=== PATIENT | female | born 1975 | race Caucasian/White ===

== ENCOUNTER → 2020-05-01 18:05 | Outpatient (CLI) | payer OTHER, SELFPAY ==
--- NOTE | ~2020-05-01 | MM_ITS ---
EXAMINATION: MM screening [facility] BI w jenniffer HISTORY: Screening mammogram TECHNIQUE: Craniocaudal and mediolateral oblique 3-D tomosynthesis images were obtained and synthetic 2-D images were generated. CAD analysis was submitted and interpreted. COMPARISON: 12/10/2018, 06/27/2016, 12/30/2019 BREAST PARENCHYMAL COMPOSITION: There are scattered areas of fibroglandular density. FINDINGS: There is no evidence of suspicious mass, calcification, or architectural distortion to sugg est malignancy in either breast. There has been no suspicious interval change. IMPRESSION: 1. No mammographic evidence of malignancy. 2. Recommend routine screening mammography in one year. BI-RADS Category 1: Negative Reviewed, dictated and finalized at location A.
== END ==
PROVIDERS: Visit Provider Nurse Practitioner Obstetrics & Gynecology
DX: Z12.31 Encounter for screening mammogram for malignant neoplasm of breast (principal)
CPT/HCPCS: 77063; 77067

== ENCOUNTER → 2021-08-23 11:54 | Outpatient (CLI) | payer OTHER, SELFPAY ==
--- NOTE | ~2021-08-23 | MM_ITS ---
EXAMINATION: MM screening [facility] BI w jenniffer HISTORY: Screening TECHNIQUE: Craniocaudal and mediolateral oblique 3-D tomosynthesis images were obtained and synthetic 2-D images were generated. CAD analysis was submitted and interpreted. COMPARISON: Comparison to multiple prior studies sequentially, with oldest reviewed study dated 06/06. BREAST PARENCHYMAL COMPOSITION: Breast composed of scattered areas of fibroglandular density FINDINGS: There is no evidence of suspicious mass, calcification, or architectural distortion to sugg est malignancy in either breast. There has been no suspicious interval change. IMPRESSION: 1. No mammographic evidence of malignancy. 2. Recommend routine screening mammography in one year. BI-RADS Category 1: Negative Reviewed, dictated and finalized at location A. [employer]
== END ==
PROVIDERS: PCP Internal Medicine; Visit Provider Obstetrics & Gynecology
DX: Z12.31 Encounter for screening mammogram for malignant neoplasm of breast (principal)
CPT/HCPCS: 77063; 77067

== ENCOUNTER → 2022-01-23 09:16 | Outpatient (CLI) | payer OTHER, SELFPAY ==
--- NOTE | ~2022-01-23 | XR_ITS ---
XR shoulder RT min 2V DATE: 01/23/2022 09:52 INDICATION: Shoulder pain TECHNIQUE: 4 views COMPARISON: None FINDINGS: No fracture or dislocation, periosteal reaction or bone destruction or abnormal soft tissue calcification. Normal alignment at the acromion clavicular and glenohumeral joints. Levoscoliosis of the cervical spine and dextro scoliosis of the upper thoracic spine. IMPRESSION: Cervical and thoracic scoliosis No fracture or dislocation or abnormal soft tissue calcification of right shoulder Reviewed, dictated and finalized at location B. IMPRESSION: Cervical and thoracic scoliosis No fracture or dislocation or abnormal soft tissue calcification of right shoul katie
--- NOTE | ~2022-01-23 | XR_ITS ---
XR shoulder LT min 2V DATE: 01/23/2022 09:52 INDICATION: Shoulder pain TECHNIQUE: 4 views COMPARISON: None FINDINGS: Levoscoliosis of cervical spine and extra scoliosis of the upper thoracic spine. No fracture, dislocation, periosteal reaction or bone destruction or abnormal soft tissue calcificati on of left shoulder. IMPRESSION: Cervical and thoracic scoliosis; no fracture or dislocation or abnormal soft tissue calci fication of the left shoulder Reviewed, dictated and finalized at location B. IMPRESSION: Cervical and thoracic scoliosis; no fracture or dislocation or abno rmal soft tissue calcification of the left shoulder
== END ==
PROVIDERS: PCP Internal Medicine; Visit Provider Nurse Practitioner Family
DX: M25.519 Pain in unspecified shoulder (principal); M41.82 Other forms of scoliosis, cervical region; M41.84 Other forms of scoliosis, thoracic region
CPT/HCPCS: 73030

== ENCOUNTER → 2022-08-28 11:10 | Outpatient (CLI) | payer OTHER, SELFPAY ==
--- NOTE | ~2022-08-28 | XR_ITS ---
XR hip LT 2V w AP pelvis 08/28/2022 11:30 Indication: Bursitis Procedure: 4 views left hip including AP pelvis Comparison: No prior studies for comparison. Findings: There is mild osteoarthritis no fracture or traumatic malalignment. No soft tissue abnormal ity. There are pelvic phleboliths. Pelvic rings are intact. Sacral foramen are symmetric. Impression: 1: Mild osteoarthritis of the left hip. Reviewed, dictated and finalized at location L. DRESSER Impression: 1: Mild osteoarthritis of the left hip.
== END ==
PROVIDERS: PCP Internal Medicine; Visit Provider Nurse Practitioner Family
DX: M71.9 Bursopathy, unspecified (principal); M16.12 Unilateral primary osteoarthritis, left hip
CPT/HCPCS: 73502

== ENCOUNTER → 2023-01-01 10:35 | Outpatient (CLI) | payer OTHER, SELFPAY ==
--- NOTE | ~2023-01-01 | MM_ITS ---
EXAMINATION: MM screening [facility] BI w jenniffer HISTORY: Screening mammogram TECHNIQUE: Craniocaudal and mediolateral oblique 3-D tomosynthesis images were obtained and synthetic 2-D images were generated. CAD analysis was submitted and interpreted. COMPARISON: August 23, 2021, May 01, 2020, December 10, 2018 bilateral screening mammogram examinati on BREAST PARENCHYMAL COMPOSITION: There are scattered areas of fibroglandular density. FINDINGS: There is no evidence of suspicious mass, calcification, or architectural distortion to sugg est malignancy in either breast. There has been no suspicious interval change. IMPRESSION: 1. No mammographic evidence of malignancy. 2. Recommend routine screening mammography in one year. BI-RADS Category 1: Negative Reviewed, dictated and finalized at location A.
== END ==
PROVIDERS: PCP Advanced Practice Midwife; Visit Provider Advanced Practice Midwife
DX: Z12.31 Encounter for screening mammogram for malignant neoplasm of breast (principal)
CPT/HCPCS: 77063; 77067

== ENCOUNTER 2024-03-26 08:22 | Outpatient (CLI) | payer OTHER, SELFPAY ==
--- NOTE | ~2024-03-26 | MM_ITS ---
EXAMINATION: MM screening [facility] BI w jenniffer HISTORY: Screening TECHNIQUE: Craniocaudal and mediolateral oblique 3-D tomosynthesis images were obtained and synthetic 2-D images were generated. CAD analysis was submitted and interpreted. COMPARISON: Comparison to multiple prior studies sequentially, with oldest reviewed study dated 12/29. BREAST PARENCHYMAL COMPOSITION: . Not dense: There are scattered areas of fibroglandular density. FINDINGS: There is no evidence of suspicious mass, calcification, or architectural distortion to sugg est malignancy in either breast. There has been no suspicious interval change. IMPRESSION: 1. No mammographic evidence of malignancy. 2. Recommend routine screening mammography in one year. BI-RADS Category 1: Negative Reviewed, dictated and finalized at location B.
== END 2024-03-26 08:23 | disposition home or self-care (01) ==
LOC: MICIMG 08:23
PROVIDERS: PCP Internal Medicine; Visit Provider Nurse Practitioner Women's Health
DX: Z12.31 Encounter for screening mammogram for malignant neoplasm of breast (principal)
CPT/HCPCS: 77063; 77067

== ENCOUNTER 2025-01-09 00:35 | Day surgery (SDC) | payer OTHER, SELFPAY ==
[2025-01-03 11:20] VITALS: BMI 37.1
--- NOTE | 2025-01-03 11:21 | PC.NURSE ---
Report to the Outpatient Waiting Room, entrance under the green pavilion located off [facility], at time _0600_ on date _[id number]_. Planned Procedure Time: _0730_.? Time changes happen often and if your time is changed the preop area will call you the afternoon before. - You and your visitor will be asked to self-screen and do not enter if you have any COVID symptoms. Please call surgeon if you need to reschedule. - A mask is optional within the hospital at this time. Patients may have clear liquids (water, carbonated beverages, clear teas, apple juice) until 3 hours prior to surgery with a maximum of 20 ounces. - No food from midnight until time of surgery and no smoking, or chewing tobacco (or any form of nicotine). No chewing gum, candy or mints. Take only the following medications with a SIP of water on the morning of surgery: ___Nebivolol and Flonase____ DO NOT STOP ANY OF YOUR OTHER PRESCRIPTION MEDICATIONS PRIOR TO SURGERY EXCEPT THE FOLLOWING Hold all vitamins and supplements for 3 days per anesthesiologist. Medications to discontinue per physician ____Hold Semaglutide until after surgery.____ Date to take last dose Please no make-up, nail romansh, hairspray, perfume, deodorant, or body powder the day of surgery.? No jewelry (including any body piercings) or valuables the day of surgery, leave them at home.? Please take a shower or bath the night before, or the morning of, surgery with an antibacterial soap.? Wear comfortable, loose fitting clothing.? - Jewelry must be removed prior to entering the operating room.? Rings and piercings that are not removed may be cut off. - The hospital will not accept responsibility for valuables.? - Please leave all valuables, including medications, at home the day of surgery. If you are going home after surgery, a licensed local combination truck driver must drive you home.? - NO public transportation without another adult if you receive anesthesia. - We recommend that an adult stay with you for 24 hours following discharge. - We also recommend that you do not drive, make important decision, drink alcoholic beverages, or take any drugs that were not prescribed by your health care provider for at least 24 hours after your discharge time. Follow any additional instructions given to you from your surgeon. Telephone instructions given to ___Claudia__and asked if any additional questions and then verbalized understanding. Patient advised to call surgeon office or pre surgery nurse liaison [phone] if any additional questions.
--- OUTSIDE RECORDS SUMMARY | 2025-01-09 00:38 | XMS_ITS | Clinical Summary ---
Author Organization [facility] Address [address] [facility], [address] [address] Phone Care Team Providers Care Photostatic Copy Maker Name Role Phone Florentino Garza MD Primary Care Provider [phone] Allergies Active Allergy Reactions Criticality Noted Date Comments Ciprofloxacin Rash 12/05/2016 Gabapentin Shortness of Breath High 02/01/2021 Medications cyanocobalamin (VITAMIN B-12) 1000 MCG/ML Solution by Intramuscular route. 7 Active Naltrexone-buP ROPion HCl ER 8-90 MG TABLET SR 12 HR Take by mouth. 7 Active methylPREDNISo lone (MEDROL DOSPACK) 4 MG Tablet Therapy Pack As directed 9 Active predniSONE (DELTASONE) 10 MG TabletIndicati ons:Rash Take 4 tab PO daily x 2 days, 3 tab PO daily x 2 days, 2 tab PO daily x 2 day, 1 tab PO daily x 2 days. 20 Tab 0 Active Additional Information Patient not taking.Reported on 04/26/2023 D3-50 1.25 MG (48724 UT) Capsule TAKE 1 CAPSULE BY MOUTH ONE TIME PER WEEK 1 Active ibuprofen (MOTRIN) 800 MG TabletIndicati ons:Injury of calf,Right calf pain Take 1 Tablet by mouth every 8 hours as needed for Mild or more severe pain. 60 Tablet 2 Active Famotidine (PEPCID PO) Take by mouth. Act paul doxycycline hyclate (VIBRAMYCIN) 100 MG Capsule 2 Active albuterol (ProAir HFA) 108 (90 Base) MCG/ACT Aerosol SolutionIndica tions:Bronchit is take 2 Puffs by inhalation every 4 hours as needed for Wheezing or Cough. 18 g 2 Active Additional Information Patient not taking.Reported on 03/09/2024 methylPREDNISo lone (Medrol) 4 MG Tablet Therapy PackIndication s:Bronchitis Use as per instructions on package. 21 Tablet 2 Active Additional Information Patient not taking.Reported on 04/26/2023 nebivolol (BYSTOLIC) 5 MG Tablet Take 5 mg by mouth daily. Active Active Problems No known active problems Immunizations Immunization Administration Dates Next Due Covid-19, Mrna, Lnp-s, Pf, 30 Mcg/0.3 Ml Dose (P fizer) 08/24/2020,08/03/2020 Influenza Vaccine 03/22/2021 Influenza Vaccine greater than 3 yrs 03/28/2022 Influenza Vaccine, Quadrivalent, PF 03/22/2021,1 Influenza, Recombinant, Quadrivalent,injectable, Pf 05/05/2020 Influenza, Seasonal, Injectable, Undefined 05/02,04/09/2019 TDAP Vaccine 08/09/2008 Social History Tobacco Use Types Packs/Day Years Used Date Smoking Tobacco: Never Smokeless Tobacco: Never Tobacco Cessation:Counseling Given: Not Answered Alcohol Use Standard Drinks/Week Comments Not Currently 0 (1 standard drink = 0.6 oz pur e alcohol) Sexually Active Control Partners Comments Yes Male Comments No Sex and Gender Information Value Date Recorded Sex Assigned at Not on file Legal Sex Female 9:04 PM CDT Gender Identity Not on file Sexual Orientation Not on file Last Filed Vital Signs Vital Sign Reading Time Taken Comments Blood Pressure 134/66 03/09/2024 3:48 PM CDT Pulse 86 03/09/2024 3:48 PM CDT Temperature 35.9 C (96.7 F) 03/09/2024 3:48 PM CDT Respiratory Rate 20 03/09/2024 3:48 PM CDT Oxygen Saturation 98% 03/09/2024 3:48 PM CDT Inhaled Oxygen Concentration - - Weight 106.1 kg (234 lb) 02/09/2022 1:10 PM CDT Height 167.6 cm (5' 6) 02/03/2022 5:38 PM CDT Body Mass Index 37.77 02/03/2022 5:38 PM CDT Plan of Treatment Health Maintenance Due Date Last Done Comments Hepatitis C Virus (HCV) Screening 1974 Hepatitis B Immunization (1 of 3 - 19+ 3-dose series) 1993 Pap Smear 1995 Cervical Cancer Screening (CCS) 2004 HPV/Cotest 2004 Cologuard 2019 Immunochemical Fecal Occult Blood 2019 Mammogram 08/23/2022 08/23/2021, 08/23/2021 SARS-COV-2 Immunization ( season) 2024 06/13/2021, 08/24/2020, 08/03/2020 Zoster Immunization (1 of 2) 2024 Influenza Immunization (Season Ended) 2025 07/16/2023, 07/16/2023, 03/28/2022, Additional history exists Td Immunization Every 10 Years (Adults With 1 Tdap) 02/22/2032 02/21/2022, 08/09/2008 Colonoscopy 04/16/2032 04/16/2022, 11/30/2015 Colorectal Cancer Screening 04/16/2032 Respiratory Syncytial Virus (RSV) Immunization (Adult) (1 - 1-dose 75+ series) 2049 Discussion re Starting/Frequency of Mammograms Discontinued 08/23/2021 DTaP/Tdap/Td Immunization Discontinued 02/21/2022, 10/2008 Pneumococcal Immunization (50+ years) Completed 07/27/2022 Pneumococcal Immunization Combined Discontinued 07/27/2022 Human Papillomavirus (HPV) Immunization Aged Out No longer eligible based on patient's age to complete this topic Meningococcal Immunization (ACWY) Aged Out No longer eligible based on patient's age to complete this topic Rotavirus Immunization Aged Out No lo nger eligible based on patient's age to complete this topic Insurance [employer] [facility] Care Teams Photostatic Copy Maker Relationship Specialty Start Date End Date Florentino Garza MD [address] [place] [id number] PCP - General 02/03/22
--- OUTSIDE RECORDS SUMMARY | 2025-01-09 00:38 | XMS_ITS | Referral Summary ---
Author Organization [facility] [address] [place] [address] [place] [id number] Care Team Providers Care Elevator Erector Name Role Phone Florentino Garza MD Primary Care Provider + Allergies Active Allergy Reactions Criticality Noted Date Comments Ciprofloxacin Rash Medium 09/14/2015 Gabapentin Shortness of breath High 02/01/2021 Medications loratadine (CLARITIN) 10 mg tablet Take 1 tablet (10 mg total) by mouth daily Active nebivoloL (BYSTOLIC) 5 mg tablet Take 1 tablet (5 mg total) by mouth daily Active busPIRone (BUSPAR) 10 mg tablet Take 1 tablet (10 mg total) by mouth 2 (two) times a day 4 Active naproxen sodium 220 mg capsule Take 220-440 mg by mouth 2 (two) times a day as needed (pain) Active ondansetron (ZOFRAN) 4 mg tablet Take 1 tablet (4 mg total) by mouth every 6 (six) hours 12 tablet 4 Active dicyclomine (BENTYL) 20 mg tablet Take 1 tablet (20 mg total) by mouth 2 (two) times a day 20 tablet 4 05/24/20 25 Active senna-docusate (PERICOLACE) 8.6-50 mg Take 1-2 tabs nightly as needed for constipation management. 4 Active simethicone (MYLICON) 125 mg chewable tablet Take 1 tablet (125 mg total) by mouth 4 (four) times a day as needed (cramping/bloati ng/gas/nausea) 120 tablet 3 4 Active metoclopramide (REGLAN) 10 mg tablet Take one pill up to twice daily as needed for abdominal fullness, nausea, sulfur burps, epigastric pain. 60 tablet 4 Active Active Problems Problem Noted Date Diagnosed Date Irritable bowel syndrome wit h both constipation and diarrhea 01/15/2024 Tubular adenoma of colon 01/15/2024 Abnormal biliary HIDA scan 01/15/2024 Hepatic steatosis 01/15/2024 Dyspepsia 01/15/2024 Arthralgia of multiple joints 01/03/2022 Assessment & Plan (01/03/2022 11:44 AM CDT): Arthralgias continue. Referred to rheumatology for further evaluation and management. Cellulitis of abdominal wall 01/03/2022 Assessment & Plan (01/03/2022 11:44 AM CDT): Finished all antibiotics. Clean area with antibacterial soap. Keep area open, without bandages, as much as possible. Screening for colon cancer 01/03/2022 Overview (01/03/2022): Added automatically from request for surgery [id number] Personal history of colonic polyps 01/03/2022 Overview (01/03/2022): Added automatically from request for surgery [id number] Class 2 obesity due to exces s calories without serious comorbidity with body mass index (BMI) of 38.0 to 38.9 in adult 12/16/2021 Assessment & Plan (01/03/2022 11:45 AM CDT): Weight reduction, daily exercise and dietary modifications recommended. Assessment & Plan (12/16/2021 12:41 PM CDT): Weight reduction, daily exercise and dietary modifications recommended. Myalgia 12/16/2021 Assessment & Plan (01/03/2022 11:44 AM CDT): Muscle pain continues, referred to Rheumatology for further eval/mgmt. Assessment & Plan (12/16/2021 12:41 PM CDT): Labs ordered, will follow. Short follow-up recommended. Migraine with aura 05/17/2021 Uterine leiomyoma 05/17/2021 Vitamin D deficiency 10/24/2016 Assessment & Plan (12/16/2021 12:42 PM CDT): Labs ordered, encouraged patient to take daily supplement. Vitamin B12 deficiency (non anemic) 10/24/2016 Assessment & Plan (12/16/2021 12:42 PM CDT): Labs ordered, encouraged patient to take daily supplement. Sleep disturbance 10/24/2016 Other rosacea 05/24/2010 Pure hypercholesterolemia 09/06/2004 Overview (12/16/2021): The 10-year ASCVD risk score ([employer] CELINE Jr., et al., 2013) is: 1.2% Values used to calculate the score: Age: 43 years Sex: Female Is Non- : No Diabetic: No Tobacco smoker: No Systolic Blood Pressure: 138 mmHg Is BP treated: No HDL Cholesterol: 49 mg/dL Total Cholesterol: 216 mg/dL Supraventricular premature beats 08/26/2004 Resolved Problems Problem Noted Date Diagnosed Date Resolved Date Intermittent constipation 10/30/2023 Intermittent diarrhea 10/30/20232023 Generalized anxiety disorder 08/02/2004 01/15/2024 Immunizations Immunization Administration Dates Next Due Influenza, Quadrivalent, Rec ombinant, Egg Free, Preservative Free, Intramuscular 05/05/2020 Influenza, Quadrivalent, Spl it, Preservative Free, Intramuscular 03/22/2021,04/07/2018 Influenza, Trivalent, IM (MDV) 4,03/28/2022,05/02/2020,04/09 Pfizer SARS-CoV-2 Monovalent Vaccination (12+ Yrs) PURPLE 06/13/2021 Tdap 02/21/2022,08/09/2008 Social History Tobacco Use Types Packs/Day Years Used Date Smoking Tobacco: Never Smokeless Tobacco: Never Tobacco Cessation:Counseling Given: Not Answered Alcohol Use Standard Drinks/Week Comments No 0 (1 standard drink = 0.6 oz pur e alcohol) AUDIT-C Answer Date Recorded Q1: How often do you have a drink containing alc ohol? Never 05/27/2024 Average Number of Drinks Not on file 024 Frequency of Binge Drinking Not on file 05/07 PHQ-2 Answer Date Recorded PHQ-2 Total Score (If total score is 3 or more points, staff should administer the PHQ-9) 0 01/03/2022 Personal Safety Answer Date Recorded Have you ever been in or are you currently in a harmful physical or emotional relationship or is someone making you feel afraid or unsafe? Denies 05/23/2024 Comments Unknown Sex and Gender Information Value Date Recorded Sex Assigned at Not on file Legal Sex Female 3:36 PM LATHE MACHINIST Gender Identity Not on file Sexual Orientation Not on file Last Filed Vital Signs Vital Sign Reading Time Taken Comments Blood Pressure 131/87 05/27/2024 9:27 AM LATHE MACHINIST Pulse 82 05/27/2024 9:27 AM LATHE MACHINIST Temperature 36.4 C (97.6 F) 05/23/2024 11:40 PM LATHE MACHINIST Respiratory Rate 16 05/24/2024 4:00 AM LATHE MACHINIST Oxygen Saturation 95% 05/27/2024 9:27 AM LATHE MACHINIST Inhaled Oxygen Concentration - - Weight 107.2 kg (236 lb 4.8 oz) 05/27/2024 9:27 AM LATHE MACHINIST Height 167.6 cm (5' 6) 05/27/2024 9:27 AM LATHE MACHINIST Body Mass Index 38.14 05/27/2024 9:27 AM LATHE MACHINIST Plan of Treatment Not on file Procedures Procedure Name Priority Date/Time Associated Diagnosis Comments COLONOSCOPY 04/16/2022 12:22 PM CDT HEPATITIS C ANTIBODY Routine 12/16/2021 10:44 AM CDT Annual physical exam Encounter for hepatitis C screening test for low risk patient HM MAMMOGRAPHY Routine 06/08/2021 from Last 3 Months or Most Recently Relevant to Health Maintenance Results * COLONOSCOPY (04/16/2022 12:22 PM CDT) Anatomical Region Laterality Modality Other Narrative Procedure Note Kane Daniels MD - 04/16/2022 12:22 PM CDT [facility] Patient Name: Yesy Lutz Procedure Date: 04/16/2022 12:22PM Date of : 1975 Admit Type: Outpatient Age: 46 Gender: Female Attending MD: Kane Daniels M.D. Room: [facility] ENDOSCOPY ROOM 1 Note Status: Finalized Patient Profile: This is a 46 year old female. History of adenomapolyp in 2015. She has some constipation issues. Nofamily history of colon cancer. Procedure: Colonoscopy Indications: Surveillance: Personal history of adenomatouspolyps on last colonoscopy > 5 years ago, Lastcolonoscopy: November 2015 Referring MD: Matilde Kemp D.O. Providers: Kane Daniels M.D. Impression: - The entire examined colon is normal lesions noted over. - Diverticulosis in the sigmoid colon. - Internal hemorrhoids. - No specimens collected. Recommendation: - Repeat colonoscopy in 5 years for screeningpurposes. Medicines: Monitored Anesthesia Care Complications: No immediate complications. Estimated Blood Loss: Estimated blood loss: none. Procedure: Pre-Anesthesia Assessment: - Prior to the procedure, a History and Physicalwas performed, and patient medications and allergieswere reviewed. The patient's tolerance of previous anesthesia was also reviewed. The risks andbenefits of the procedure and the sedation options and risks were discussed with the patient. All questions were answered, and informed consent was obtained. Prior Anticoagulants: The patient has taken noanticoagulant or antiplatelet agents. ASA Grade Assessment: II -A patient with mild systemic disease. After reviewing the risks and benefits, the patient was deemed in satisfactory condition to undergo the procedure. The benefits, risks and alternatives of theprocedure and sedation were discussed and informed consentwas obtained. All questions were answered. Please referto the signed informed consent document in the medical record. The bowel preparation used was Miralax and bisacodyl tablets via split dose instruction. The scope was passed under direct vision. The Pediatric Colonoscope PCF-H190L [id number] was introducedthrough the anus and advanced to the the cecum, identifiedby appendiceal orifice and ileocecal valve. Thequality of the bowel preparation was excellent. Bowel prepwas administered using a split dose. Findings: The perianal and digital rectal examinations were normal. The cecum appeared normal. The colon (entire examined portion) appeared normal. No polyps and no mass Many small-mouthed diverticula were found in the sigmoid colon. Internal hemorrhoids were found during retroflexion. The hemorrhoids were small. Electronically signed by Kane Daniels M.D. Kane Daniels M.D. 04/16/2022 1:50:26 PM Number of Addenda: 0 Note Initiated On: 04/16/2022 12:22 PM Procedure Code(s): --- Professional --- 36336, Colonoscopy, flexible; diagnostic, including collection of specimen(s) by brushing or washing, when performed (separateprocedure) Diagnosis Code(s): --- Professional --- Z86.010, Personal history of colonic polyps K64.8, Other hemorrhoids K57.30, Diverticulosis of large intestine without perforation orabscess without bleeding CPT copyright 2020 [employer]. All rights reserved. The codes documented in this report are preliminary and upon extractor plant operator reviewmay be revised to meet current compliance requirements. Recognized by the [employer] for promoting quality in endoscopy Kane Daniels MD ENDOSCOPY PROCEDURES Final Result * Hepatitis C antibody (12/16/2021 10:44 AM CDT) Hep C Ab Nonreactive Nonreactive [facility] Comment: Interpretive Data Nonreactive: Antibodies to HCV not detected. Does NOT exclude the possibility of recent exposure to HCV. Equivocal: Equivocal for HCV antibodies. Supplemental molecular testing will be automatically performed to determine infection status in accordance with current CDC screening recommendations. Reactive: Positive for HCV antibodies. This may represent current or past HCV infection. Supplemental molecular testing will be automatically performed to determine current infection status in accordance with current CDC screening recommendations. Interpretive data was last revised on 2019. Testing performed by: [facility], [address] [place] [address]., [address] Blood 12/16/2021 10:4 4 AM CDT 12/16/2021 3:52 PM CDT us Matilde Kemp DO LAB MICROBIOLOGY - GENERAL ORDERABLES Final Result [facility]) 1 [facility] Department [place] [address] * HM MAMMOGRAPHY (06/08/2021) us Historical Provider HEALTH MAINTENANCE Final Result from Last 3 Months or Most Recently Relevant to Health Maintenance Insurance [facility] AETNA SIG [id number] [facility] [id number] [place] [id number] Advance Directives For more information, please contact: [phone] * Full Code (Latest Code Status on File) Date Activated Date Inactivated Comments 04/16/2022 11:53 AM 04/16/2022 6:55 PM Care Teams Elevator Erector Relationship Specialty Start Date End Date Florentino Garza MD PCP - General Internal Medicine 04/16/22
--- OUTSIDE RECORDS SUMMARY | 2025-01-09 00:38 | XMS_ITS | Clinical Summary ---
Author Organization [address] Address [address] [place] [phone] Care Team Providers Care Hybrid Car Mechanic Name Role Phone Florentino Garza MD Primary [...] (01/03/2022): Added automatically from request for surgery [id number] Personal history of colonic polyps 01/03/2022 Overview (01/03/2022): Added automatically from request for surgery [id number] Class 2 obesity due to exces s [...] Overview (12/16/2021): The 10-year ASCVD risk score ([employer] CELINE Jr., et al., 2013) is: 1.2% [...] Vaccination (12+ Yrs) PURPLE 06/13/2021 Tdap 02/21/2022,08/09/2008 Surgical History Surgery Date Site/Laterality Comments WRIST SURGERY Right COLONOSCOPY 11/30/2015 Medical History Medical History Date Comments Hx Other Medical elbow surgery Social History Tobacco Use Types Packs/Day Years [...] on file Legal Sex Female 3:36 PM GERICARE AIDE Gender Identity Not on file Sexual Orientation Not on file Obstetrics History Para Term AB IAB SAB Ectopic Multiple Livin g Live Births 1 Date Outcome GA Total Labor Labor/2nd/3rd Weight Sex Type Anes PTL Miriam A1 A5 Name Clin Last Filed Vital Signs Vital Sign Reading Time Taken Comments Blood Pressure 131/87 05/27/2024 9:27 AM GERICARE AIDE Pulse 82 05/27/2024 9:27 AM GERICARE AIDE Temperature 36.4 C (97.6 F) 05/23/2024 11:40 PM GERICARE AIDE Respiratory Rate 16 05/24/2024 4:00 AM GERICARE AIDE Oxygen Saturation 95% 05/27/2024 9:27 AM GERICARE AIDE Inhaled Oxygen Concentration - - Weight 107.2 kg (236 lb 4.8 oz) 05/27/2024 9:27 AM GERICARE AIDE Height 167.6 cm (5' 6) 05/27/2024 9:27 AM GERICARE AIDE Body Mass Index 38.14 05/27/2024 9:27 AM GERICARE AIDE Plan of Treatment Health Maintenance Due Date Last Done Comments Cervical Cancer Screening 1975 Hepatitis B Screening 1992 Pneumococcal vaccine <65 (1 of 2 - PCV) 1993 Regular Well Visit/Exam 18-64 12/16/2022 12/16/2021 Depression Screening 01/03/2023 01/03/2022, 12/17/19 Covid-19 Vaccine (4 2023-2 5 season) 2024 06/13/2021, 08/24/2020, 08/03/2020 Zoster Vaccine (1 of 2) 2024 Influenza Vaccine (Season Ended) 2025 07/16/2023, 03/28/2022, 03/22/2021, Additional history exists Breast Cancer Screening-Mammogram 03/26/2025 03/26/2024, 08/23/2021, 08/23/2021, Additional history exists DTaP/Tdap/Td Vaccine (3 - Td or Tdap) 02/22/2032 02/21/2022, 08/09/2008 Colon Cancer Screening-Colonoscopy 04/16/20322021, 11/30/2015 Hepatitis C Screening Completed 12/16/2021 Procedures Procedure Name Priority Date/Time Associated Diagnosis [...] Daniels MD - 04/16/2022 12:22 PM CDT [facility] Patient Name: Yesy Lutz Procedure Date: 04/16/2022 12:22PM Date of : 1975 Admit Type: Outpatient Age: 46 Gender: Female Attending MD: Kane Daniels M.D. Room: [facility] ENDOSCOPY ROOM 1 Note Status: Finalized Patient Profile: This is a 46 year old female. History of adenomapolyp in 2016. She has some constipation issues. Nofamily history [...] under direct vision. The Pediatric Colonoscope PCF-H190L [id number] was introducedthrough the anus and advanced to [...] 12:22 PM Procedure Code(s): --- Professional --- 23953, Colonoscopy, flexible; diagnostic, including collection of specimen(s) by brushing or washing, when performed (separateprocedure) Diagnosis Code(s): --- Professional --- Z86.010, Personal history of colonic polyps K64.8, Other hemorrhoids K57.30, Diverticulosis of large intestine without perforation orabscess without bleeding CPT copyright 2020 [employer]. All rights reserved. The codes documented in this report are preliminary and upon fish receiver reviewmay be revised to meet current compliance requirements. Recognized by the [employer] for promoting quality in endoscopy us Kane Daniels MD ENDOSCOPY PROCEDURES Final Result * Hepatitis C antibody (12/16/2021 10:44 AM CDT) Hep C Ab Nonreactive Nonreactive [facility]) Comment: Interpretive Data Nonreactive: Antibodies to HCV [...] last revised on 2019. Testing performed by: [facility], [address] [place] [address], [place]., [address] Blood 12/16/2021 10:4 4 AM CDT 12/16/2021 3:52 PM CDT us Matilde Kemp DO LAB MICROBIOLOGY - GENERAL ORDERABLES Final Result [facility] 1 [facility] [place] [address] * HM MAMMOGRAPHY (06/08/2021) us Historical Provider HEALTH MAINTENANCE Final Result from Last 3 Months or Most Recently Relevant to Health Maintenance Insurance [facility] AETNA SIG [id number] [facility] C[facility] Advance Directives For more information, please contact: [phone] * Full Code (Latest Code Status on File) Date Activated Date Inactivated Comments 04/16/2022 11:53 AM 04/16/2022 6:55 PM Care Teams Hybrid Car Mechanic Relationship Specialty Start Date End Date Florentino Garza MD PCP - General Internal Medicine 04/16/22
--- OUTSIDE RECORDS SUMMARY | 2025-01-09 00:39 | XMS_ITS | Clinical Summary ---
Author Organization [facility] Address [address] [place] [address] Care Team Providers Care Weather Anchor Name Role Phone Florentino Garza MD Primary Care Provider [phone] Allergies Active Allergy Reactions Criticality Noted Date Comments Ciprofloxacin Rash Low 09/14/2015 Gabapentin Shortness of Breath/Wheezing High 021 Unclassified Drug Unknown 10/31/2020 Medications loratadine (Claritin) 10 mg tablet Take 10 mg by mouth daily. Active semaglutide (Ozempic) 0.25 mg or 0.5 mg (2 mg/3 mL) Pen Injector Inject 0.5 mg by subcutaneous injection every 7 days. 9 mL 3 4 Active busPIRone (BUSPAR) 10 mg tablet take 1 tablet by mouth twice a day 200 Tablet 3 4 Active nebivoloL (BYSTOLIC) 5 mg Tablet TAKE 1 TABLET BY MOUTH EVERY DAY 90 Tablet 2 4 Active valACYclovir (Valtrex) 1 gram tablet Take 1 Tablet (1 Gram) by mouth 3 times daily. 21 Tablet 5 Active naproxen sodium (ALEVE) 220 mg Capsule Take 220-440 mg by mouth 1 time daily as needed for Pain. Active cholecalciferol , vitamin D3, (Vitamin D3) 1,000 unitIndications :Vitamin D deficiency Take 1 Tablet (1,000 Units) by mouth daily. 100 Tablet 3 5 Active Active Problems Patient Care Coordination No te Formatting of this note migh t be different from the original. Prev visit done07/24/23 Problem Noted Date Diagnosed Date Benign hypertension 07/18/2022 Other hyperlipidemia 02/21/2022 Sleep disturbance 10/24/2016 Chronic sinus complaints 10/24/2016 Vitamin D deficiency 10/24/2016 Vitamin B12 deficiency (non anemic) 10/24/2016 Abnormal liver function test 08/25/2014 Pure hypercholesterolemia 09/06/2004 Overview (11/04/2018): The 10-year ASCVD risk score (Combsdelvin BERGER Jr., et al., 2013) is: 1.2% Values used to calculate the score: Age: 43 years Sex: Female Is Non- : No Diabetic: No Tobacco smoker: No Systolic Blood Pressure: 138 mmHg Is BP treated: No HDL Cholesterol: 49 mg/dL Total Cholesterol: 216 mg/dL Supraventricular premature beats 08/26/2004 Generalized anxiety disorder 08/02/2004 Resolved Problems Problem Noted Date Diagnosed Date Resolved Date Other pneumonia, unspecified organism 02/21/2022 07/18/2022 Morbid obesity due to excess calories 10/24/2016 10/31/2020 Elevated blood pressure read ing without diagnosis of hypertension 07/09/2007 07/18/2022 Acute sinusitis, unspecified 07/09/2007 03/02/2009 Primary localized osteoarthr osis, ankle and foot 02/18/2007 03/02/2009 Herpes zoster without mention of complication 05/20/2003/02/2009 Posttraumatic stress disorder 05/20/2005 03/02/2009 Acute pharyngitis 09/25/2004 03/02/2009 Chest pain, unspecified 08/02/200402/04 Encounters Date Type Department Care Team Description 12/20/2024 External Device Data STL ABSTRACTION Provider, Abstract 11/24/2024 External Device Data STL ABSTRACTION Provider, Abstract 11/22/2024 External Device Data STL ABSTRACTION Provider, Abstract 11/01/2024 Abstract [facility] [address] [place] [id number] Florentino Garza MD 10/31/2024 Orders Only [facility] Primary Care [facility] [address] [place] [address] Misty Sandra PA Vitamin D deficiency (Primary Dx) 10/18/2024 External Device Data STL ABSTRACTION Provider, Abstract 10/18/2024 Results Follow-Up [facility] Care [facility] [address] [place] [address] Misty Sandra PA MICROALBUMIN/CREATIN INE RATIO, RANDOM UR, HEMOGLOBIN A1C from Last 3 Months Immunizations Immunization Administration Dates Next Due (ADACEL/BOOSTRIX)(10 YR UP) TDAP VACCINE, 0.5ML, IM 02/21/2022,08/09/2008 (PFIZER)(12 YR UP) COVID-19 VACCINE - EMERGENCY USE AUTHORIZATION, MRNA, [id number](PF) 30 MCG/0.3 ML IM SUSP 06/13/2021,08/24/2020,08/03/2020 INFLUENZA VACCINE QUADRIVALE NT 6 MOS UP PF IM 07/16/2023,03/22/2021,04/08/2018 Influenza Seasonal Unspecifi ed Formulation IM 07/16/2023,03/28/2022,05/02/2020,2018 Family History Medical History Relation Name Comments Diabetes Father High Cholesterol Father Hypertension Father Other Father myasthina gravi s High Cholesterol Mother Hypertension Mother Other Mother Acid Reflex Relation Name Status Comments Father Mother Social History Tobacco Use Types Packs/Day Years Used Date Smoking Tobacco: Never Passive Smoke Exposure: Never Smokeless Tobacco: Never Tobacco Cessation:Counseling Given: No Alcohol Use Standard Drinks/Week Comments Yes 0 (1 standard drink = 0.6 oz pur e alcohol) beer, wine 2 -3 x's per year Comments No Sex and Gender Information Value Date Recorded Sex Assigned at Not on file Legal Sex Female 3:59 AM PATIENT FLOW COORDINATOR Gender Identity Not on file Sexual Orientation Not on file Last Filed Vital Signs Vital Sign Reading Time Taken Comments Blood Pressure 126/74 09/29/2024 9:47 AM CDT Pulse 95 09/29/2024 9:47 AM CDT Temperature 36.2 C (97.1 F) 09/29/2024 9:47 AM CDT Respiratory Rate 18 09/12/2022 11:50 AM PATIENT FLOW COORDINATOR Oxygen Saturation 98% 09/29/2024 9:47 AM CDT Inhaled Oxygen Concentration - - Weight 104.3 kg (230 lb) 11/01/2024 11:05 AM CDT Height 167.6 cm (5' 6) 09/29/2024 9:47 AM CDT Body Mass Index 37.12 09/29/2024 9:47 AM CDT Plan of Treatment Upcoming Encounters Date Type Department Care Team (Late st Contact Info) Description 03/16/2025 9:30 AM CDT Office Visit [facility] Primary Care [facility] [address] [facility] [address] [place] [address] Misty Sandra PA [address] [facility] [address] [place] [address] Health Maintenance Due Date Last Done Comments HEPATITIS B VACCINES (1 of 3 - 19+ 3-dose series) 1993 HPV/Cotest (21-29) 1995 HPV/Cotest (30-) 2004 FIT-DNA Q 3 years 2019 FIT/FOBT Q 1 year 2019 Flex Sig/CT Colonography Q 5 years 2019 COVID-19 Vaccine (2023-2 5 season) 2024 06/13/2021, 08/24/2020, 08/03/2020 ZOSTER VACCINE (1 of 2) 2024 INFLUENZA VACCINE (#1) 2025 , 07/16/2023, 07/16/2023, Additional history exists BREAST CANCER SCREENING 03/26/2025 03/26/20 24, 08/23/2021, 08/23/2021 CERVICAL CANCER SCREENING 10/16/2025 PAP SMEAR 10/16/2025 10/16/2022 (Prev iously completed) Pre-Diabetes and Diabetes Screening 10/15/2027 10/14/2024, 03/04/2009 DTAP/TDAP/TD VACCINES (3 - T d or Tdap) 02/22/2032 02/21/2022, 08/09/2008 COLORECTAL SCREENING 04/16/2032 04/16/2022, 04/16/2022, 11/30/2015, Additional history exists Colorectal Cancer Screening 04/16/2032 Preventative Visit- Commercial Completed 0 09/29/2024, 07/24/2023, 11/06/2022, Additional history exists Procedures Procedure Name Priority Date/Time Associated Diagnosis Comments HEMOGLOBIN A1C Routine 10/14/2024 8:43 AM CDT Screening for diabetes mellitus MICROALBUMIN/CREATINI NE RATIO, RANDOM UR Routine 10/14/2024 8:41 AM CDT Essential hypertension VITAMIN D 25 HYDROXY Routine 10/14/2024 8:39 AM CDT Vitamin D deficiency VITAMIN B12 LEVEL Routine 10/14/2024 8:3 9 AM CDT Vitamin B12 deficiency (non anemic) TSH Routine 10/14/2024 8:39 AM CDT Other hyperlipidemia LIPID PANEL Routine 10/14/2024 8:39 AM CDT Other hyperlipidemia COMPREHENSIVE METABOLIC PANEL Routine 10/14/2024 8:39 AM CDT Other hyperlipidemia CBC WITH DIFFERENTIAL Routine 10/14/2024 8:39 AM CDT Essential hypertension C-REACTIVE PROTEIN Routine 10/14/2024 8: 39 AM CDT Myalgia MAMMO 3D GISELL SCREEN BILAT W OR WO CAD Routine 03/26/2024 5:09 PM CDT ENDOSCOPY, COLON, SCREENING Routine 11/30/2015 from Last 3 Months or Most Recently Relevant to Health Maintenance Results * HEMOGLOBIN A1C (10/14/2024 8:43 AM CDT) HEMOGLOBIN A1C 5.1 <5.7 % of total Hgb [facility] Comment: For the purpose of screening for the presence of diabetes: <5.7% Consistent with the absence of diabetes 5.7-6.4% Consistent with increased risk for diabetes (prediabetes) > or =6.5% Consistent with diabetes This assay result is consistent with a decreased risk of diabetes. Currently, no consensus exists regarding use of hemoglobin A1c for diagnosis of diabetes in children. According to [place] Diabetes Association (ADA) guidelines, hemoglobin A1c <7.0% represents optimal control in non- diabetic patients. Different metrics may apply to specific patient populations. Standards of Medical Care in Diabetes(ADA). ESTIMATED AVERAGE GLUCOSE (MG/DL) 100 mg/dL [facility] ESTIMATED AVERAGE GLUCOSE (MMOL/L) 5.5 mmol/L [facility] Comment: FASTING:UNKNOWN FASTING: UNKNOWN Test Performed at: [email or web address] [address] [place] [address] [place] Gupta Blood 10/14/2024 8:43 AM CDT 10/14/2024 8:44 AM CDT Misty OLGUIN CHEMISTRY ORDERABLES Fin al Result [facility] [phone] [facility] [address] [place] [address] * MICROALBUMIN/CREATININE RATIO, RANDOM UR (10/14/2024 8:41 AM CDT) Creatinine, Urine 159 20 - 275 mg/dL [email or web address] MICROALBUMIN, URINE 0.6 See Note: mg/dL [facility] Comment: Reference Range: Reference Range Not established MICROALBUMIN/CREAT RATIO, UR 4 <30 mg/g creat [facility] Comment: The ADA defines abnormalities in albumin excretion as follows: Albuminuria Category Result (mg/g creatinine) Normal to Mildly increased <30 Moderately increased 30-299 Severely increased > OR = 300 The ADA recommends that at least two of three specimens collected within a 3-6 month period be abnormal before considering a patient to be within a diagnostic category. FASTING:UNKNOWN FASTING: UNKNOWN Test Performed at: [facility] [address] [place] [address] [place] Gupta MD Urine URINE SPECIMEN OBTAINED BY CLEAN CATCH PROCEDURE / Unknown 10/14/2024 8:41 AM CDT 10/14/2024 8:41 AM CDT us Misty OLGUIN URINE ORDERABLES Final R esult [facility] [phone] [email or web address] [address] [place] [address] * CBC WITH DIFFERENTIAL (10/14/2024 8:39 AM CDT) WBC 9.0 3.8 - 10.8 Thousand/u L [facility] RBC 4.94 3.80 - 5.10 Million/uL [facility] HEMOGLOBIN 14.4 11.7 - 15.5 g/dL [facility] HEMATOCRIT 42.8 35.0 - 45.0 % [facility] MCV 86.6 80.0 - 100.0 fL [facility] MCH 29.1 27.0 - 33.0 pg [facility] MCHC 33.6 32.0 - 36.0 g/dL [facility] Comment: For adults, a slight decrease in the calculated MCHC value (in the range of 30 to 32 g/dL) is most likely not clinically significant; however, it should be interpreted with caution in correlation with other red cell parameters and the patient's clinical condition. RDW 13.0 11.0 - 15.0 % [facility] PLATELETS 210 140 - 400 Thousand/u L [facility] MPV 10.8 7.5 - 12.5 fL [facility] NEUTROPHIL ABSOLUTE 6,534 1,500 - 7,800 cells/uL [facility] LYMPHOCYTE ABSOLUTE 1,647 850 - 3,900 cells/uL [facility] MONOCYTE ABSOLUTE 405 200 - 950 cells/uL [facility] EOSINOPHIL ABSOLUTE 378 15 - 500 cells/uL [facility] BASOPHILS ABSOLUTE 36 0 - 200 cells/uL [facility] NEUTROPHIL 72.6 % [facility] LYMPHOCYTES 18.3 % [facility] MONOCYTE 4.5 % [facility] EOSINOPHILS 4.2 % [facility] BASOPHILS 0.4 % [facility] Comment: FASTING:YES FASTING: YES Test Performed at: [email or web address] [address] [place] [address] [place] Gupta MD Blood 10/14/2024 8:39 AM CDT 10/14/2024 8:39 AM CDT Florentino Garza MD HEMATOLOGY ORDERABLES Final R esult Performing Organization Address [facility] Co de Phone Number [facility] [phone] [email or web address] [place] [address] * (ABNORMAL) VITAMIN D 25 HYDROXY (10/14/2024 8:39 AM CDT) VITAMIN D, 25 OH, TOTAL 26(L) 30 - 100 ng/mL [email or web address] Comment: Vitamin D Status 25-OH Vitamin D: Deficiency: <20 ng/mL Insufficiency: 20 - 29 ng/mL Optimal: > or = 30 ng/mL For 25-OH Vitamin D testing on patients on D2-supplementation and patients for whom quantitation of D2 and D3 fractions is required, the [facility]) 25-OH VIT D, (D2,D3), LC/MS/MS is recommended: order code 66548 (patients >2yrs). See Note 1 Note 1 For additional information, please refer to http://education.Shelby.tv/faq/LIN907 (This link is being provided for informational/ educational purposes only.) FASTING:YES FASTING: YES Test Performed at: [email or web address] [address] [place] Gupta MD Blood 10/14/2024 8:39 AM CDT 10/14/2024 8:39 AM CDT Florentino Garza MD CHEMISTRY ORDERABLES Final Re sult Performing Organization Address City/[facility]/ZIP Co de Phone Number [facility] [phone] [email or web address] [place] [address] * C-REACTIVE PROTEIN (10/14/2024 8:39 AM CDT) [facility] CRP 3.7 <8.0 mg/L [facility] Comment: FASTING:YES FASTING: YES Test Performed at: [email or web address] [place] [address] [place] Gupta MD Blood 10/14/2024 8:39 AM CDT 10/14/2024 8:39 AM CDT us Florentino Garza MD CHEMISTRY ORDERABLES Final Re sult Performing Organization Address [facility] de Phone Number [facility] [email or web address] [address] * TSH (10/14/2024 8:39 AM CDT) [facility] TSH 1.90 mIU/L [facility] Comment: Reference Range > or = 20 Years 0.40-4.50 Ranges First trimester 0.26-2.66 Second trimester 0.55-2.73 Third trimester 0.43-2.91 Test Performed at: [facility] [place] [address] [place] Gupta MD Blood 10/14/2024 8:39 AM CDT 10/14/2024 8:39 AM CDT us Florentino Garza MD CHEMISTRY ORDERABLES Final Re sult Performing Organization Address [facility] Co de Phone Number [facility] [phone] [email or web address] [facility] [place] [address] * VITAMIN B12 LEVEL (10/14/2024 8:39 AM CDT) [facility] VITAMIN B12 297 200 - 1100 pg/mL [email or web address] Comment: Please Note: Although the reference range for vitamin B12 is 200-1100 pg/mL, it has been reported that between 5 and 10% of patients with values between 200 and 400 pg/mL may experience neuropsychiatric and hematologic abnormalities due to occult B12 deficiency; less than 1% of patients with values above 400 pg/mL will have symptoms. Test Performed at: [facility] [address] [place] [address] [place] Gupta MD Blood 10/14/2024 8:39 AM CDT 10/14/2024 8:39 AM CDT us Florentino Garza MD CHEMISTRY ORDERABLES Final Re sult [facility] [phone] [facility] [address] [place] [address] * (ABNORMAL) LIPID PANEL (10/14/2024 8:39 AM CDT) [facility] CHOLESTEROL 189 <200 mg/dL [email or web address] HDL 52 > OR = 50 mg/dL [email or web address] TRIGLYCERIDE 166(H) <150 mg/dL [email or web address] LDL CALCULATED 109(H) mg/dL (calc) [email or web address] Comment: Reference range: <100 Desirable range <100 mg/dL for primary prevention; <70 mg/dL for patients with CHD or diabetic patients with > or = 2 CHD risk factors. LDL-C is now calculated using the Kevon-Tang calculation, which is a validated novel method providing better accuracy than the Friedewald equation in the estimation of LDL-C. Kevon SS et al. JESUS. 2013;310(19): 6060-1249 (http://education.Shelby.tv/faq/NNN648) CHOL/HDL RATIO 3.6 <5.0 (calc) [facility] NON-HDL CHOLESTEROL 137(H) <130 mg/dL (calc) [email or web address] Comment: For patients with diabetes plus 1 major ASCVD risk factor, treating to a non-HDL-C goal of <100 mg/dL (LDL-C of <70 mg/dL) is considered a therapeutic option. Test Performed at: [address] [place] [address] [place] Gupta MD Blood 10/14/2024 8:39 AM CDT 10/14/2024 8:39 AM CDT us Florentino Garza MD CHEMISTRY ORDERABLES Final Re sult [facility] [phone] [email or web address] [address] [place] [address] * COMPREHENSIVE METABOLIC PANEL (10/14/2024 8:39 AM CDT) GLUCOSE 84 65 - 99 mg/dL [facility] Comment: Fasting reference interval BUN 19 7 - 25 mg/dL [facility] CREATININE 0.67 0.50 - 1.03 mg/dL [facility] GFR 106 > OR = 60 mL/min/1. 73m2 [facility] BUN/CREAT RATIO SEE NOTE: 6 - 22 (calc) [facility] Comment: Not Reported: BUN and Creatinine are within reference range. SODIUM 140 135 - 146 mmol/L [facility] POTASSIUM 4.5 3.5 - 5.3 mmol/L [facility] CHLORIDE 104 98 - 110 mmol/L [facility] CO2 27 20 - 32 mmol/L [facility] CALCIUM 9.3 8.6 - 10.4 mg/dL [facility] TOTAL PROTEIN 6.3 6.1 - 8.1 g/dL [facility] ALBUMIN 4.3 3.6 - 5.1 g/dL [facility] GLOBULIN 2.0 1.9 - 3.7 g/dL (calc) [facility] ALBUMIN/GLOBULIN RATIO 2.2 1.0 - 2.5 (calc) [facility] BILIRUBIN TOTAL 0.4 0.2 - 1.2 mg/dL [facility] ALKALINE PHOSPHATASE 64 37 - 153 U/L [facility] AST 17 10 - 35 U/L [facility] ALT 19 6 - 29 U/L [facility] Comment: Test Performed at: [facility] [address] [place] [address] [place] Gupta MD Blood 10/14/2024 8:39 AM CDT 10/14/2024 8:39 AM CDT us Florentino Garza MD CHEMISTRY ORDERABLES Final Re sult [facility] [phone] [facility] [address] [place] [address] * MAMMO 3D GISELL SCREEN BILAT W OR WO CAD (03/26/2024 5:09 PM CDT) Anatomical Region Laterality Modality Breast Bilateral Mammography us Abstract Provider MAMMO ORDERABLES Edited Result - Final * ENDOSCOPY, COLON, SCREENING (11/30/2015) us Abstract Provider GI PROCEDURE ORDERABLES Edited Result - Final [facility] from Last 3 Months or Most Recently Relevant to Health Maintenance Insurance [facility] Care Teams Weather Anchor Relationship Specialty Start Date End Date Florentino Garza MD PCP - General 11/04/07
--- OUTSIDE RECORDS SUMMARY | 2025-01-09 00:39 | XMS_ITS | Encounter Summary ---
Author Organization [facility] Address [address] [place] [address] Care Team Providers Care Welder Apprentice Name Role Phone Florentino Garza MD Primary Care Provider [phone] Encounter Details Date Type Department Care Team (Late st Contact Info) Description 05/22/2005 Outpatient Historical [facility] Internal Medicine [address] [address] Florentino Garza MD [address] [place] [address] Social History Tobacco Use Types Packs/Day Years Used Date Smoking Tobacco: Never Assessed Comments Unknown Sex and Gender Information Value Date Recorded Sex Assigned at Not on file Legal Sex Female 3:59 AM GASOLINE PLANT OPERATOR Gender Identity Not on file Sexual Orientation Not on file documented as of this encounter Last Filed Vital Signs Vital Sign Reading Time Taken Comments Blood Pressure 130/70 05/22/2005 4:15 PM GASOLINE PLANT OPERATOR Pulse - - Temperature - - Respiratory Rate - - Oxygen Saturation - - Inhaled Oxygen Concentration - - Weight 104.3 kg (230 lb) 05/22/2005 4:15 PM GASOLINE PLANT OPERATOR Height - - Body Mass Index 42.07 08/02/2004 1:30 PM GASOLINE PLANT OPERATOR documented in this encounter Plan of Treatment Upcoming Encounters Date Type Department Care Team (Late st Contact Info) Description 03/16/2025 9:30 AM CDT Office Visit [facility] Primary Care [facility] [address] [facility] [address] [place] [address] Misty Sandra PA [address] [facility] [address] [place] [address] documented as of this encounter Visit Diagnoses Not on filedocumented in this encounter Additional Health Concerns Infection Onset Date Last Indicated Resolved Time R/O C. diff 05/27/2024 05/25/2024 05/27/2024 3:36 PM GASOLINE PLANT OPERATOR documented as of this encounter Care Teams Welder Apprentice Relationship Specialty Start Date End Date Florentino Garza MD PCP - General 11/04/07 documented as of this encounter
--- OUTSIDE RECORDS SUMMARY | 2025-01-09 00:39 | XMS_ITS | Data Portability ---
Author Organization [facility] Address [address] [place] [address] Care Team Providers Care Chain Saw Operator Name Role Phone SIGRID FRANCO Primary Care Provider Assessment Encounter Date Assessment Date Assessment LastModified by Organization Details LastModified Time 04/06/2020 04/06/2020 Annual gynecological exam performed. Patient will come back in a year unless there are new symptoms. [email or web address] Not available 04/06/2020 14:48:26 05/17/2021 05/17/2021 healthy female exam patient declines std testing pap due 2022 mammogram ordered and encouraged contraception-de clines FU 1 year or prn re her concerns: may not have estrogen. declines any progesterone only options to treat dysmenorrhea, as POP made RICHARDS worse. US for h/o fibroids and pain, though suspect pain musculoskeletal. [email or web address] Not available 05/17/2021 14:10:32 06/21/2021 06/21/2021 Discussed US results in depth- normal small cysts on ovaries, tiny fibroids unlikely contributing to her dysmenorrhea significantly. may not have estrogen. recommended mirena iud, pt declines for now, but info given. continue aleve. FU WWE. [email or web address] Not available 06/24/2021 09:57:04 Plan of Treatment Reminders Order Date Submit Date Provider Last Modified By Organization Details Last Modified Time Details Appointments None recorded. Lab None recorded. Referral None recorded. Procedures None recorded. Surgeries None recorded. Imaging US, pelvis 2020 021 [email or web address] [address], [address], [place], [address], 1 20:22:45 US, transvagina l 2020 021 [email or web address] [address], [address], [place], [address], 1 20:22:45 Medication Orders Slynd 4 mg (28) tablet 2019 020 [email or web address] [facility] [id number] [facility], [address] [facility], [place], [address], 11:30:28 Patient TargetsNo targets recorded. Patient Instructions Encounter Date Encounter Id Patient Instructions Last Modified By Organization Details Last Modified Time 04/06/2020 [id number] [email or web address] Not available 15:13:20 Reason for Referral None Reported. Results Created Date Observation Date Name Description Value Unit Range Abnormal Flag Note LastModifiedBy Organization Detail LastModifiedTime 04/06/2004/10/2020 pap, LB Pap test thin prep Negati ve for Intrae pithel ial Lesion or Malign johnson normal ACCES CASA #: [id number] Sourc e: Cervi sadaf/E ndoce rvica l LMP: 03/06 Date Taken : 04/06 Speci men Type: ThinP rep Vial Date Repor tiff: 2019 Clini sadaf Data: Cytot ech: AG Obrien( CP) Date Repor tiff: 2019 Revie wed By: AG Jose (ASCP ) Speci men Adequ acy: Satis facto ry for evalu ation No endoc ervic al/tr ansfo rmati on zone compo nent prese nt Gener al Categ oriza tion: NEGAT KURTIS FOR INTRA EPITH ELIAL LESIO N OR MALIG OSMIN This speci men has been josse zed by the ThinP rep Imagi ng Syste m, an inter activ e compu ter syste m which mehran ts [facility] se[facility] of ThinP rep Pap Test slide s. Follo wing imagi ng, the slide was revie wed by a Cytot echno logis t and/o r Patho logis tVivi Orozco N A A S S A Y S R E P O R T TEST NAME MELISSA HUYNH ----- ---- ----- -- HPV High Risk Kimberly delgado (TMA) ThinP rep Vial The human papil lomav irus (HPV) High Risk Kimberly delgado is an FDA-a pprov ed in-vi tro ampli fied nucle ic acid test for the quali tativ e detec tion of E6/E7 viral mRNA. Resul ts shoul d be corre lated with patie nt prese ntati on, histo ry, cervi sadaf cytol ogy and other clini sadaf and labor atory findi ngs. See https ://[employer]/s ites/ defau lt/fi les/2 018-0 3/AW- 07594 _002_ 01.pd f for [facility] infor amari delgado. Test perfo rmed by [employer], d/b/a [facility] rou, [address] [facility], [place] [address] , Nadja Ospina ra, DO, Labor atory [facility]. HPV High Risk *HPV NOT DETEC TIFF (TYPE S 16, 18, 31, 33, 35, 39, 45, 51, 52, 56, 58, 59, 66, 68) *HPV: The human papil lomav irus (HPV) High Risk Kimberly delgado is an FDA-a pprov ed in-vi tro ampli fied nucle ic acid test for the quali tativ e detec tion of E6/E7 viral mRNA. Resul ts shoul d be corre lated with patie nt prese ntati on, histo ry, cervi sadaf cytol ogy and other clini sadaf and labor atory findi ngs. See https ://[employer]/s ites/ defau lt/fi les/2 018-0 3/AW- 30312 _002_ 01.pd f for [facility] infor amari n. Test perfo rmed by [facility]oc [facility] [employer], [employer], d/b/a [employer], [address], [place] [address] , Nadja Ospina ra, DO, Labor atory [facility] [facility]. End of t Techn ical servi kasey provi ded by [facility] [facility] [employer], [employer], d/b/a [employer], [address] [place] [address] Dominick Daniel MD, [facility] tor. Case revie wed and diagn osis rende red at [facility] [facility] [employer], [employer], d/b/a [facility], [address] [place] [address] Dominick Daniel MD, [facility] tor. CONFI DENTI AL Not Available [facility] ([facility]) [address] [facility] [address], [place], [address], 04/10/2020 14:26:28 04/06/20 20 04/08/2020 HPV DNA, high- risk HPV high risk NOT DETECT ED normal Not Available [facility]) [address] [facility] [address], [place], [address], 04/10/2020 14:26:28 05/02/20 20 05/01/2020 MAMMO , scree sebas, bilat eral No observ ation record ed. [facility] [address], [place], [address], 05/02/2020 13:40:15 05/23/20 21 05/23/2021 US, pelvi s No observ ation record ed. [email or web address] [place] [address], [place], [address], 05/23/2021 15:25:11 05/23/20 21 05/23/2021 US, trans vagin al No observ ation record ed. [email or web address] [facility] [address], [place], [address], 05/23/2021 15:25:02 05/23/20 21 05/23/2021 US, pelvi s No observ ation record ed. fortino [facility] [address], [place], [address], 06/24/2021 16:52:50 08/23/19 22 08/23/2021 MAMMO , scree sebas, bilat eral No observ ation record ed. [email or web address] [facility] [address], [place], [address], 08/23/2021 16:14:47 08/23/19 22 08/23/2021 MAMMO , scree sebas, bilat eral No observ ation record ed. [email or web address] [facility] [address], [place], [address], 08/23/2021 16:14:48 Result Notes None recorded. Problems Name Problem SNOMED Code Status Onset Date Resolution Date Notes Provider Name and Address Organization Details Recorded Time Gestatio nal diabetes mellitus [id number] Completed 201805/17/2021 Gestatio nal diabetes mellitus in pregnanc y, diet controll ed;Recor ded Elsewher e: No Locat ion: [facility] S ource: EHR Supervisor Rough End remedios: N Arvin ce ID: 0001 Jaime lable Time: 04:30:00 PM Idalia Galdamez MD [address], [place], [address], [facility] 11:43:16 Dysfunct ional uterine bleeding Completed 201105/17/2021 Other disorder s of menstrua tion and other abnormal bleeding from female genital tract;Re corded Elsewher e: No Locat ion: [facility] S ource: EHR Supervisor Rough End remedios: N Arvin ce ID: 0001 Jaime lable Time: 02:30:00 PM Idalia Galdamez MD [address], [place], [address], [facility] 1 11:42:47 Gestatio n period, 32 weeks [id number] Completed 201805/17/2021 32 weeks gestatio n of pregnanc y;Record ed Elsewher e: No Locat ion: Abdi mckeon [facility] S ource: EHR Supervisor Rough End remedios: N Shabnamti ce ID: 0001 Jaime lable Time: 09:30:00 AM Idalia Galdamez MD [address], [place], [address], [facility] 11:43:02 Screenin g for malignan t neoplasm of cervix Completed 201505/17/2021 Screenin g for malignan t neoplasm s of the cervix;R ecorded Elsewher e: No Locat ion: [facility] S ource: EHR Supervisor Rough End remedios: N Shabnamti ce ID: 0001 Jaime lable Time: 10:15:00 AM Idalia Galdamez MD [address], [place], [address], [facility] 11:44:20 Gestatio n period, 35 weeks [id number] Completed 201805/17/2021 35 weeks gestatio n of pregnanc y;Record ed Elsewher e: No Locat ion: Abdi mckeon [facility] S ource: EHR Supervisor Rough End remedios: Thomas Haqueti ce ID: 0001 Jaime lable Time: 04:00:00 PM Idalia Galdamez MD [address], [place], [address], [facility] 11:43:08 Abscess of vulva [id number] Completed 201505/17/2021 Furuncle of vulva;Re corded Elsewher e: No Locat ion: Abdi mckeon [facility] S ource: EHR Supervisor Rough End remedios: N Shabnamti ce ID: 0001 Jaime lable Time: 02:00:00 PM Idalia Galdamez MD [address], [place], [address], [facility] 11:41:45 Hyperten casa in the obstetri c context Completed 201805/17/2021 Pre-exis ting essentia l htn comp pregnanc y, third trimeste r;Record ed Elsewher e: No Locat ion: Abdi mckeon [facility] S ource: EHR Supervisor Rough End remedios: N Shabnamti ce ID: 0001 Jaime lable Time: 04:00:00 PM Idalia Galdamez MD [address], [place], [address], [facility] 11:43:25 Gestatio n period, 34 weeks [id number] Completed 201805/17/2021 34 weeks gestatio n of pregnanc y;Record ed Elsewher e: No Locat ion: Abdi mckeon [facility] S ource: EHR Supervisor Rough End remedios: N Shabnamti ce ID: 0001 Jaime lable Time: 04:00:00 PM Idalia Galdamez MD [address], [place], [address], [facility] 11:43:06 Abnormal finding on antenata l screenin g of mother [id number] Completed 201805/17/2021 Abnormal hematolo g finding on antenata l screenin g of mother;R ecorded Elsewher e: No Locat ion: Abdi mckeon [facility] S ource: EHR Supervisor Rough End remedios: N Practi ce ID: 0001 Jaime lable Time: 04:30:00 PM Idalia Galdamez MD [address], [place], [address], [facility] 11:41:43 Uses oral contrace ption [id number] Completed 201205/17/2021 Surveill ance of contrace ptive pill;Rec orded Elsewher e: No Locat ion: Abdi mckeon [facility] S ource: EHR Supervisor Rough End remedios: N Practi ce ID: 0001 Jaime lable Time: 01:00:00 PM Idalia Galdamez MD [address], [place], [address], [facility] 11:43:[address] Concept Completed 201505/17/2021 Encntr for field control inspector exam (general ) (routine ) w/o abn findings ;Recorde d Elsewher e: No Locat ion: [facility] S ource: EHR Supervisor Rough End remedios: N Practi ce ID: 0001 Jaime lable Time: 10:15:00 AM Idalia Galdamez MD [address], [place], [address], [facility] 11:44:34 Screenin g for malignan t neoplasm of rectum Completed 201405/17/2021 Screenin g for malignan t neoplasm s of the rectum;R ecorded Elsewher e: No Locat ion: [facility] S ource: EHR Supervisor Rough End remedios: N Practi ce ID: 0001 Jaime lable Time: 09:00:00 AM Idalia Galdamez MD [address], [place], [address], [facility] 11:44:22 Infectio n of obstetri c surgical wound [id number] Completed 201805/17/2021 Infectio n of obstetri c surgical wound, unspecif ied;Jackson rded Elsewher e: No Locat ion: [facility] S ource: EHR Supervisor Rough End remedios: N Practi ce ID: 0001 Jaime lable Time: 11:00:00 AM Idalia Galdamez MD [address], [place], [address], [facility] 11:43:33 Hyperten sive disorder [id number] Completed 201505/17/2021 Essentia l (primary ) hyperten casa;Rec orded Elsewher e: No Locat ion: [facility] S ource: EHR Supervisor Rough End remedios: N Practi ce ID: 0001 Jaime lable Time: 10:15:00 AM Idalia Galdamez MD [address], [place], [address], [facility] 11:43:31 Polyp of corpus uteri [id number] Completed 201205/17/2021 Polyp of corpus uteri;Re corded Elsewher e: No [facility] Supervisor Rough End remedios: N Practi ce ID: 0001 Jaime lable Time: 05:30:00 PM Idalia Galdamez MD [address], [place], [address], [facility] 11:43:52 Pelvic and perineal pain [id number] Completed 201505/17/2021 Pelvic and perineal pain;Rec orded Elsewher e: No [facility]: EHR Supervisor Rough End remedios: N Practi ce ID: 0001 Jaime lable Time: 10:15:00 AM Idalia Galdamez MD [address], [place], [address], [facility] 11:43:50 Gestatio n period, 36 weeks [id number] Completed 201805/17/2021 36 weeks gestatio n of pregnanc y;Record ed Elsewher e: No Locat ion: [facility] S ource: EHR Supervisor Rough End remedios: N Practi ce ID: 0001 Jaime lable Time: 04:30:00 PM Idalia Galdamez MD [address], [place], [address], [facility] 11:43:10 Pre-exis ting hyperten casa complica ting pregnanc y, childbir th and puerperi um [id number] Completed 201805/17/2021 Pre-exis ting HTN complica ting the postpart um period;R ecorded Elsewher e: No [facility]: EHR Supervisor Rough End remedios: N Practi ce ID: 0001 Jaime lable Time: 11:00:00 AM Idalia Galdamez MD [address], [place], [address], [facility] 11:43:56 Pregnanc y test positive [id number] Completed 201305/17/2021 Pregnanc y examinat ion or test, positive result;R ecorded Elsewher e: No Locat ion: [facility] S ource: EHR Supervisor Rough End remedios: N Shabnamti ce ID: 0001 Jaime lable Time: 03:00:00 PM Idalia Galdamez MD [address], [place], [address], [facility] 11:44:07 Pregnanc y detectio n examinat ion Completed 201705/17/2021 Encounte r for pregnanc y test, result positive ;Recorde d Elsewher e: No Locat ion: [facility] S ource: EHR Supervisor Rough End remedios: N Shabnamti ce ID: 0001 Jaime lable Time: 11:00:00 AM Idalia Galdamez MD [address], [place], [address], [facility] 11:44:02 Gestatio n period, 23 weeks [id number] Completed 201705/17/2021 23 weeks gestatio n of pregnanc y;Record ed Elsewher e: No Locat ion: [facility] S ource: EHR Supervisor Rough End remedios: N Shabnamti ce ID: 0001 Jaime lable Time: 03:30:00 PM Idalia Galdamez MD [address], [place], [address], [facility] 11:42:53 Gestatio n period, 33 weeks [id number] Completed 201805/17/2021 33 weeks gestatio n of pregnanc y;Record ed Elsewher e: No Locat ion: Abdi mckeon [facility] S ource: EHR Supervisor Rough End remedios: N Shabnamti ce ID: 0001 Jaime lable Time: 04:00:00 PM Idalia Galdamez MD [address], [place], [address], [facility] [address] 11:43:[address] Concept Completed 201705/17/2021 Encntr for general adult medical exam w/o abnormal findings ;Recorde d Elsewher e: No [facility] S ource: EHR Supervisor Rough End remedios: N Shabnamti ce ID: 0001 Jaime lable Time: 02:30:00 PM Idalia Galdamez MD [address], [place], [address], [facility] 11:44:32 Lochia finding Completed 201805/17/2021 Encounte r for routine postpart um follow-u p;Record ed Elsewher e: No Locat ion: Abdi mckeon [facility] S ource: EHR Supervisor Rough End remedios: N Shabnamti ce ID: 0001 Jaime lable Time: 11:00:00 AM Idalia Galdamez MD [address], [place], [address], [facility] 11:43:38 Past pregnanc y history of gestatio nal diabetes mellitus [id number] Completed 201805/17/2021 Personal history of gestatio nal diabetes ;Recorde d Elsewher e: No [facility] S ource: EHR Supervisor Rough End remedios: N Shabnamti ce ID: 0001 Jaime lable Time: 08:41:[address] AM MD [address], [place], [address], [facility] 11/12/202 1 11:43:18 Body mass index 30+ - obesity 334766507 Completed 201705/17/2021 Body mass index (BMI) 39.0-39. 9, adult;Re corded Elsewher e: No [facility]: EHR Supervisor Rough End remedios: N Shabnamti ce ID: 0001 Jaime lable Time: 02:30:00 PM Idalia Galdamez MD [address], [place], [address], [facility] 14:07:54 Urinary tract infectio us disease [id number] Completed 201505/17/2021 Urinary tract infectio n, site not specifie d;Record ed Elsewher e: No Locat ion: [facility] S ource: EHR Supervisor Rough End remedios: N Arvin ce ID: 0001 Jaime lable Time: 02:00:[address] MD [address], [place], [address], [facility] 11:44:38 Pregnanc y test negative [id number] Completed 201105/17/2021 Pregnanc y examinat ion or test, negative result;R ecorded Elsewher e: No Locat ion: [facility] S ource: EHR Supervisor Rough End remedios: N Arvin ce ID: 0001 Jaime lable Time: 02:30:00 PM Idalia Galdamez MD [address], [place], [address], [facility] 1 11:44:05 Pregnanc y, childbir th and puerperi um finding Completed 201805/17/2021 Encntr for suprvsn of normal first preg, third trimeste r;Record ed Elsewher e: No Locat ion: [facility] S ource: EHR Supervisor Rough End remedios: N Arvin ce ID: 0001 Jaime lable Time: 11:15:00 AM Idalia Galdamez MD [address], [place], [address], [facility] 1 11:44:13 Normal pregnanc y in josepha thien [id number] 93568 Completed 201705/17/2021 Encounte r for supervis ion of other normal pregnanc y, 2nd trimeste r;Record ed Elsewher e: No Locat ion: Abdi mckeon [facility] S ource: EHR Supervisor [employer] End remedios: N Arvin ce ID: 0001 Jaime lable Time: 02:00:00 PM Idalia Galdamez MD [address], [place], [address], [facility] 11:43:[address] Concept Completed 201805/17/2021 Anxiety; Recorded Elsewher e: No Locat ion: Abdi mckeon [facility] S ource: EHR Supervisor [employer] End remedios: N Arvin ce ID: 0001 Jaime lable Time: 11:15:[address] MD [address], [place], [address], [facility] 11:44:29 Irregula r periods [id number] Completed 201205/17/2021 Irregula r menstrua l cycle;Re corded Elsewher e: No Locat ion: Abdi mckeon [facility] S ource: EHR Supervisor Rough End remedios: N Arvin ce ID: 0001 Jaime lable Time: 01:45:[address] MD [address], [place], [address], [facility] 11:43:[address] Concept Completed 201805/17/2021 Matern care for abnlt fetl hrt rate or rhym, 3rd tri, unsp;Rec orded Elsewher e: No Locat ion: Abdi mckeon [facility] S ource: EHR Supervisor Rough End remedios: N Shabnamti ce ID: 0001 Jaime lable Time: 09:45:[address] MD [address], [place], [address], [facility] 11:44:31 Gestatio n period, 37 weeks [id number] Completed 201805/17/2021 37 weeks gestatio n of pregnanc y;Record ed Elsewher e: No Locat ion: Abdi mckeon [facility] S ource: EHR Supervisor Rough [employer] remedios: N Practi ce ID: 0001 Jaime lable Time: 04:00:00 PM Idalia Galdamez MD [address], [place], [address], [facility] 11:43:12 Obesity [id number] Completed 201405/17/2021 Obesity; Recorded Elsewher e: No Locat ion: [facility] S ource: EHR Supervisor Rough End remedios: N Practi ce ID: 0001 Jaime lable Time: 09:00:00 AM Idalia Galdamez MD [address], [place], [address], [facility] 11:43:46 Acute vaginiti s [id number] Completed 201505/17/2021 Vaginiti s;Record ed Elsewher e: No Locat ion: [facility] S ource: EHR Supervisor [employer] End remedios: N Practi ce ID: 0001 Jaime lable Time: 02:00:00 PM Idalia Galdamez MD [address], [place], [address], [facility] 11:41:47 Speciali zed medical examinat ion Completed 201405/17/2021 ROUTINE BALLET TEACHER EXAMINAT ION;Jackson rded Elsewher e: No Locat ion: [facility] S ource: EHR Supervisor Rough End remedios: N Practi ce ID: 0001 Jaime lable Time: 09:00:00 AM Idalia Galdamez MD [address], [place], [address], [facility] 1 11:44:36 Evaluati on finding Completed 201805/17/2021 Hematuri a, unspecif ied;Jackson rded Elsewher e: No Locat ion: Antony mike [facility] S ource: EHR Supervisor [employer] remedios: N Shabnamti ce ID: 0001 Jaime lable Time: 11:00:00 AM Idalia Galdamez MD [address], [place], [address], [facility] 1 11:42:49 Pregnanc y, childbir th and puerperi um finding Completed 201705/17/2021 Encounte r for supervis ion of normal 1st pregnanc y;Record ed Elsewher e: No Locat ion: [facility] S ource: EHR Supervisor [employer] remedios: N Arvin ce ID: 0001 Jaime lable Time: 06:00:00 PM Idalia Galdamez MD [address], [place], [address], [facility] 1 11:44:09 Miscarri age [id number] Completed 201305/17/2021 Spontane ous ;Recorde d Elsewher e: No Locat ion: [facility] S ource: EHR Supervisor [employer] remedios: N Arvin ce ID: 0001 Jaime lable Time: 03:00:00 PM Idalia Galdamez MD [address], [place], [address], [facility] 1 11:43:39 Rubella screenin g status [id number] Completed 201705/17/2021 Encounte r for antenata l screenin g, unspecif ied;Jackson rded Elsewher e: No Locat ion: [facility] S ource: EHR Supervisor Rough End remedios: N Shabnamti ce ID: 0001 Jaime lable Time: 02:30:00 PM Idalia Galdamez MD [address], [place], [address], [facility] 1 11:44:18 Pre-surg nicko evaluati on Completed 201205/17/2021 Pre-oper ative examinat ion, unspecif ied;Jackson rded Elsewher e: No Locat ion: Antony mike [facility] S ource: EHR Supervisor [employer] End remedios: N Arvin ce ID: 0001 Jaime lable Time: 01:45:00 PM Idalia Galdamez MD [address], [place], [address], [facility] 1 11:44:00 Antenata l screenin g Completed 201705/17/2021 Encounte r for antenata l screenin g for nuchal transluc ency;Rec orded Elsewher e: No [facility]: EHR Supervisor [place] remedios: N Arvin ce ID: 0001 Jaime lable Time: 02:00:00 PM Idalia Galdamez MD [address], [place], [address], [facility] 1 11:42:37 Adult health examinat ion Completed 201405/17/2021 ROUTINE MEDICAL EXAM;Rec orded Elsewher e: No Locat ion: [facility] S ource: EHR Supervisor [place] remedios: Thomas Sheridan ce ID: 0001 Jaime lable Time: 09:00:00 AM Idalia Galdamez MD [address], [place], [address], [facility] 1 11:42:32 Missed miscarri age [id number] Completed 201305/17/2021 Missed ;Recorde d Elsewher e: No Locat ion: [facility] S ource: EHR Supervisor [place] remedios: N Arvin ce ID: 0001 Jaime lable Time: 02:30:[address] MD [address], [place], [address], [facility] 1 11:43:41 Single live from singleto n pregnanc y [id number] Completed 201805/17/2021 Single live ;Pr actice ID: 0001 Idalia Galdamez MD [address], [place], [address], [facility] 11:44:27 Gestatio n period, 38 weeks [id number] Completed 201805/17/2021 38 weeks gestatio n of pregnanc y;Practi ce ID: 0001 Idalia Galdamez MD [address], [place], [address], [facility] 11:43:14 Uses combined oral contrace ption [id number] Completed 201805/17/2021 Encounte r for initial prescrip tion of contrace ptive pills;Re corded Elsewher e: No Locat ion: Abdi mckeon [facility] S ource: EHR Supervisor [place] remedios: N Practi ce ID: 0001 Jaime lable Time: 11:00:00 AM Idalia Galdamez MD [address], [place], [address], [facility] 11:42:41 Disorder of pregnanc y Completed 201805/17/2021 Polyhydr amnios, third trimeste r, not applicab le or unsp;Rec orded Elsewher e: No [facility] S ource: EHR Supervisor [place] remedios: N Practi ce ID: 0001 Jaime lable Time: 11:30:00 AM Idalia Galdamez MD [address], [place], [address], [facility] 11:42:45 Amenorrh ea [id number] Completed 201305/17/2021 AMENORRH EA;Pract ice ID: 0001 Idalia Galdamez MD [address], [place], [address], [facility] 11:42:35 Secondar y amenorrh ea [id number] Completed 201705/17/2021 Secondar y amenorrh ea;Pract ice ID: 0001 Idalia Galdamez MD [address], [place], [address], [facility] 11:44:24 Pregnanc y, childbir th and puerperi um finding Completed 201705/17/2021 Encntr for suprvsn of normal first preg, second trimeste r;Practi ce ID: 0001 Idalia Galdamez MD [address], [place], [address], [facility] 11:44:11 Pregnanc y-induce d hyperten casa Completed 201705/17/2021 Gestatio nal htn w/o signific ant proteinu bernard, unsp trimeste r;Practi ce ID: 0001 Idalia Galdamez MD [address], [place], [address], [facility] 11:44:15 Gestatio n period, 28 weeks [id number] Completed 201705/17/2021 28 weeks gestatio n of pregnanc y;Practi ce ID: 0001 Idalia Galdamez MD [address], [place], [address], [facility] 11:42:55 Gestatio n period, 30 weeks [id number] Completed 201805/17/2021 30 weeks gestatio n of pregnanc y;Practi ce ID: 0001 Idalia Galdamez MD [address], [place], [address], [facility] 11:42:57 Gestatio n period, 31 weeks [id number] Completed 201805/17/2021 31 weeks gestatio n of pregnanc y;Practi ce ID: 0001 Idalia Galdamez MD [address], [place], [address], [facility] 11:42:59 Hyperten casa in the obstetri c context Completed 201805/17/2021 Pre-exis ting essentia l hyperten casa complica ting childbir th;Pract ice ID: 0001 Idalia Galdamez MD [address], [place], [address], [facility] 11:43:29 heart finding Completed 201805/17/2021 Abnlt in heart rate and rhythm comp labor and delivery ;Practic e ID: 0001 Idalia Galdamez MD [address], [place], [address], [facility] 11:42:51 Uterine leiomyom a 94291896 Active 2020 Idalia Galdamez MD [address], [place], [address], [facility] 14:07:32 Body mass index 30+ - obesity 493394953 Active 2020 Idalia Galdamez MD [address], [place], [address], [facility] 14:07:54 Migraine with aura 2832965 Active 2020 Idalia Galdamez MD [address], [place], [address], [facility] 14:08:04 Problem Notes None recorded. Procedures Surgical History Date Name Laterality Status Provider Name and Address Organization Details Recorded Time 04/06/20 20 Date of Last Pap Smear completed Ileana Eduardo [facility] 05/17/2021 09:19:24 09/04/19 19 delivery completed [facility] 01/27/2020 14:12:20 07/06/19 14 Carpal tunnel surgery completed [facility] 01/27/2020 14:11:04 12/08/19 13 hysteroscopy completed [facility] 02/27/2020 17:14:52 procedure on elbow completed [facility] 01/27/2020 14:11:45 Imaging Results None recorded. Procedure Notes None recorded. Medical Equipment None Reported. Allergies No known drug allergies Medications Name Sig Start Date Stop Date Status Note LastModified by Organization Details LastModified Time Multi-Day tablet take 1 tablet by oral route every day with food 09/24 completed Prescrib ed Elsewher e: Yes Loca tion: [facility] odify By: [email or web address] Encount er DateTime : 12/16/19 15 09:00:00 AM Not Available Not Available Not Available Xanax 0.5 mg tablet take 1 tablet by oral route 3 times every day 09/24 completed Prescrib ed Elsewher e: No Locat ion: [facility] odify By: [email or web address] Encount er DateTime : 08/08/19 19 08:11:37 AM Not Available Not Available Not Available Aviane 0.1 mg-20 mcg tablet take 1 tablet by oral route every day 11/25 completed Prescrib ed Elsewher e: No Locat ion: [facility] odify By: [email or web address] En counter DateTime : 05/24/20 13 02:06:06 PM Not Available Not Available Not Available labetalol 200 mg tablet take 1 tablet by oral route 2 times every day 09/24 completed Prescrib ed Elsewher e: No Locat ion: [facility] odify By: [email or web address] Encount er DateTime : 09/14/19 19 08:30:00 AM Not Available Not Available Not Available ibuprofen 800 mg tablet TAKE 1 TABLET (800 MG) BY MOUTH EVERY 8 HOURS NEEDED FOR PAIN, MILD. 05/17 completed Not Available Not Available Not Available Zyrtec 10 mg tablet take 1 tablet by oral route every day 09/24 completed Prescrib ed Elsewher e: Yes [facility] By: [email or web address] Encount er DateTime : 12/16/19 15 09:00:00 AM Not Available Not Available Not Available Tamiflu 75 mg capsule take 1 capsule by oral route every day 12/15 completed Prescrib ed Elsewher e: No [facility] By: [email or web address] En counter DateTime : 05/26/20 14 09:38:51 AM Not Available Not Available Not Available Claritin 5 mg/5 mL oral solution take 10 millilit er by oral route every day 11/19 completed Prescrib ed Elsewher e: Yes Loca tion: [facility] odify By: [email or web address] En counter DateTime : 10/31/19 12 02:00:00 PM Not Available Not Available Not Available pramipexo le 0.25 mg tablet 05/17 completed Not Available Not Available Not Available Tylenol 325 mg tablet take 1 tablet by oral route every 4 hours as needed 11/25 completed Prescrib ed Elsewher e: Yes Loca tion: [facility] odify By: [email or web address] En counter DateTime : 05/27/20 13 01:00:00 PM Not Available Not Available Not Available gabapenti n 100 mg capsule TAKE 1 CAPSULE BY MOUTH AT NIGHT FOR 3 DAYS, THEN TWICE DAILY FOR 3 DAYS, THEN 3 TIMES A DAY 05/17 completed Not Available Not Available Not Available ibuprofen 600 mg tablet take 1 tablet by oral route every 6 hours as needed with food 05/17 completed Prescrib ed Elsewher e: Yes Loca tion: [facility] odify By: [email or web address] Encount er DateTime : 09/25/19 19 11:00:00 AM Not Available Not Available Not Available methylpre dnisolone 4 mg tablets in a dose pack TAKE 6 TABLETS ON DAY 1 DIRECTED ON PACKAGE AND DECREASE BY 1 TAB EACH DAY FOR A TOTAL OF 6 DAYS 05/17 completed Not Available Not Available Not Available labetalol 100 mg tablet take 1 tablet by oral route 2 times every day 05/17 completed Prescrib ed Elsewher e: Yes Loca tion: Abdi mckeon [facility] odify By: [email or web address] Encount er DateTime : 10/13/19 11:00:00 AM Not Available Not Available Not Available Vitamin D2 1,250 mcg (50,000 unit) capsule take 1 capsule by oral route every week 11/25 completed Prescrib ed Elsewher e: Yes Loca tion: Abdi mckeon [facility] odify By: [email or web address] trick En counter DateTime : 05/27/20 13 01:00:00 PM Not Available Not Available Not Available Bactrim DS 800 mg-160 mg tablet take 1 tablet by oral route every 12 hours 10/12 completed Prescrib ed Elsewher e: No Locat ion: Abdi mckeon [facility] odify By: [email or web address] Encount er DateTime : 09/25/19 19 11:00:00 AM Not Available Not Available Not Available Vitamins and Minerals tablet 12/03 completed Prescrib ed Elsewher e: Yes Loca tion: Abdi mckeon [facility] odify By: [email or web address] trick En counter DateTime : 10/31/19 12 02:00:00 PM Not Available Not Available Not Available Joaquina 0.35 mg tablet take 1 tablet by oral route every day 05/17 completed Prescrib ed Elsewher e: No Locat ion: Abdi mckeon [facility] odify By: [email or web address] Ayon ter DateTime : 01/29/20 19 08:30:00 AM Not Available Not Available Not Available Magnesium (oxide/AA chelate) 300 mg capsule 11/25 completed Prescrib ed Elsewher e: Yes Loca tion: Abdi mckeon [facility] odify By: [email or web address] En counter DateTime : 05/27/20 13 01:00:00 PM Not Available Not Available Not Available nitrofura ntoin monohydra te/macroc rystals 100 mg capsule take 1 capsule by oral route every 12 hours with food 05/17 completed Not Available Not Available Not Available Aleve 04/06 completed Not Available Not Available Not Available ibuprofen 05/17 completed Not Available Not Available Not Available labetalol 04/06 completed Not Available Not Available Not Available Zyrtec 04/06 completed Not Available Not Available Not Available Joaquina 04/06 completed Not Available Not Available Not Available cholecalc iferol (vitamin D3) 1,250 mcg (50,000 unit) capsule 05/17 completed Not Available Not Available Not Available Zyrtec 10 mg capsule 05/17 completed Prescrib ed Elsewher e: Yes Loca tion: Antony mike [facility] odify By: new Encounte r DateTime : 01/29/20 19 08:30:00 AM Not Available Not Available Not Available Probiotic 10 billion cell capsule 11/25 completed Prescrib ed Elsewher e: Yes [facility] By: [email or web address] trick En counter DateTime : 12/14/19 13 05:30:00 PM Not Available Not Available Not Available Aleve 220 mg capsule 05/27 completed Prescrib ed Elsewher e: Yes [facility] By: new Encounte r DateTime : 01/29/20 19 08:30:00 AM Not Available Not Available Not Available Foltx 2 mg-1.13 mg-25 mg tablet 04/14 completed Prescrib ed Elsewher e: Yes Loca tion: [facility] odify By: [email or web address] trick En counter DateTime : 05/27/20 13 01:00:00 PM Not Available Not Available Not Available Multi Vitamin 9 mg iron/15 mL oral liquid 04/14 completed Prescrib ed Elsewher e: Yes [facility] By: [email or web address] trick En counter DateTime : 05/27/20 13 01:00:00 PM Not Available Not Available Not Available Flonase Allergy Relief 50 mcg/actua tion nasal spray,dallin pension spray 1 - 2 spray by intranas al route every day in each nostril as needed 05/17 completed Prescrib ed Elsewher e: Yes Loca tion: Abdi mckeon [facility] odify By: new Caballero r DateTime : 01/29/20 08:30:00 AM Not Available Not Available Not Available Flonase Allergy Relief 04/06 completed Not Available Not Available Not Available Fora V31-B51-A 10-D20 strips-la ncets 30 gauge combo pack checking BS QID fasting and 1 hr pp 01/28 completed Prescrib ed Elsewher e: No Locat ion: Abdi [facility] odify By: new Caballero r DateTime : 07/08/19 08:41:38 AM Not Available Not Available Not Available One Daily 27 mg iron-800 mcg tablet take 1 tablet by oral route every day 12/15 completed Prescrib ed Elsewher e: Yes Loca tion: [facility] odify By: [email or web address] En counter DateTime : 04/14/20 14 03:00:00 PM Not Available Not Available Not Available Slynd 4 mg (28) tablet Take 1 tablet every day by oral route. 05/17 completed Not Available Not Available Not Available ID NOW COVID-19 Test Kit TEST DIRECTED 05/17 completed Not Available Not Available Not Available Flublok Quad (PF) 180 mcg (45 mcg x 4)/0.5 mL IM syringe PHARMACY ADMINIST ERED 05/17 completed Not Available Not Available Not Available Vitals Date Recorded Systolic And Diastolic Provider Name and Address Organization Details Last Updated DateTime 04/06/2020 140/88 mm[Hg] Sade Jeffries, [facility]- [address], [place], [address], [place] - [facility] 04/21/2020 11:48:31 Date Recorded Body height Body mass index (BMI) Body weight Provider Name and Address Organization Details Last Updated DateTime 04/06/2020 167.64 cm 39.9 kg/m2 586382.32 g Adela Wong [place] [facility] 04/06/2020 14:48:37 Date Recorded Body weight Body mass index (BMI) Body height Systolic And Diastolic Provider Name and Address Organization Details Last Updated DateTime 05/17/2021 93917.4 g 33.9 kg/m2 167.64 cm 144/88 mm[Hg] [facility] 05/17/2021 11:28:39 Date Recorded Body height Body mass index (BMI) Body weight Systolic And Diastolic Systolic And Diastolic Provider Name and Address Organization Details Last Updated DateTime 06/21/2021 167.64 cm 35.2 kg/m2 47584.14 g 149/86 mm[Hg] 140/80 mm[Hg] [facility] 11:48:20 Social History None recorded. Functional Status None recorded. Mental Status None recorded. Family History Relationship Description Onset Age of this Age Resolved Age Notes LastModified by Organization Details LastModified Time Mother Hypertensive disorder [email or web address] Not available 2019 14:09:08 Father Hypertensive disorder jgumber Not available 2019 14:09:08 Father Diabetes mellitus [email or web address] Not available 2019 14:09:38 Father Anemia jgumber Not available 14:09:45 Maternal Grandmother Hypertensive disorder jgumber Not available 2019 14:09:08 Maternal Aunt Hypertensive disorder jgumber Not available 2019 14:09:08 Maternal Aunt Diabetes mellitus jgumber Not available 2019 14:09:38 Maternal Grandfather Diabetes mellitus jgumber Not available 2019 14:09:38 Paternal Uncle Malignant tumor of colon jgumber Not available 2019 14:09:57 Notes:Father: Diabetes melli tus, Hypertension, Anemia Maternal aunt: Hypertension, Diabetes mellitus Maternal grandfather: Diabetes mellitus Maternal grandmother: Hypertension Mother: Hypertension Paternal uncle: Cancer, colon Medical History Condition Response Other Gestational Diabetes Y Anemia Y Hypertension Y GI Problems Y Gynecological History Statement/Question Response Date of Last Pap Smear 04/06/2020 Current Control Method None Date of LMP 05/05/2021 Obstetrics History GPAL:G 2 P 1 0 1 1 Type Value Full Term 1 Spontaneous 1 Living 1 Total 2 Past Encounters Encounter ID Performer Location Encounter Start Date Encounter Closed Date Diagnosis/Indication Diagnosis SNOMED-CT Code Diagnosis ICD10 Code Diagnosis Note [id number] [facility] [address] [address] 04/06/2020 14:44:19 04/06/2020 15:44:55 Gynecologic examination 48830956 Z01.419 Suggested Calcium with Vitamin D 1200-1500m g daily. Patient advised to get an annual flu shot in the fall and she could obtain at [facility] or [facility] care clinic. Also to obtain TDap vaccinatio n if you have not had one in the last 10 years. Recommend yearly mammograms . Encouraged monthly self breast exams. Encourage safe sexual practices, to use condoms and limit partners if not already in a monogamous relationsh ip. Engage in daily exercise of low impact aerobic exercise 45-60 minutes 4-5 times weekly. Avoid tobacco and illicit drugs as well as using moderation with alcohol intake less than 1-2 8 oz beverages daily. This lifestyle behavior pattern will lead to less health conditions and longer life span. If BMI greater than 25 weight watchers or dietary consult advised. All questions have been answered. Patient appears to understand informatio n, but if you have any questions please call or respond to this email. Pap/hpv 2018 wnl Pap 2019 wnl Wants pap/hpv this year. Advised to check in with PCP for elevated BP's. No sx's today. Feels it is white coat syndrome. Secondary dysmenorrhea 14349680 N94.5 Having significan t back issues & sciatica. See's pain specialist & getting ready to start weight loss program. Does feel her back pain worsens during her menses & causes increased dysmenorrh ea. She is not a candidate for AARON but we did discuss trial of POP SLynd to see if suppressin g ovulation/ menses will help her dysmenorrh ea and not cause such terrible flare ups of her lower back. She agrees. Samples given of SLYND. RTO x 2mos F/U Med check [id number] Idalia Galdamez MD [place] [address] [address] 05/17/2021 11:14:21 05/17/2021 14:19:16 Gynecologic examination 86750550 Z01.419 Dysmenorrhea 441685782 N 94.6 Migraine with aura 69413 06 G43.109 Body mass index 30+ - obesity 168910157 Z68.33 Uterine leiomyoma 049316 05 D25.9 [id number] Mango Bhat MD [place] [address] [address] 05/23/2021 13:47:13 05/23/2021 14:39:53 Dysmenorrhea 748713777 N94.6 [id number] Idalia Galdamez MD [place] [address] [address] 06/21/2021 11:29:18 06/24/2021 10:50:00 Dysmenorrhea 815478348 N94.6 Uterine leiomyoma 978561 05 D25.9 Health Concerns Section Related Observation LastModified by Organization Detai ls LastModified Time None Recorded Concern Status LastModified by Organization Details LastModified Time None Recorded Advance Directives Directive None Recorded Payers Insurance Date Sequence Insurance Name Policy Number Policy Callahan Covered Member ID Callahan Member ID Guarantor Name 06/24/2021 1 [facility] Harlan Valera [id number] Yesy Valera Notes Date Note Type Note Provider Name and Address Organization Details Recorded Time 04/06/2020 text/html Annual GYNReport ed bypatient.History: no gynecologic complaints Menstrual cycle:Normal menses Urinary symptoms:No hematuria; No incontinence Vulva:No genital lesion Vagina:Normal vaginal discharge Breast:No breast pain; No breast lump; No nipple discharge Current Contraception:Sati sfied with current contraception; Monogamous relationship; Partner had vasectomy Sexual complaints:No sexual complaints; No pain during intercourse; Normal libido Menopausal Symptoms:No menopausal symptoms; Normal vaginal lubrication Psychological symptoms:No depression; No anxiety; No PMDD Preventive measures:Encourage self breast examination; Encourage regular exercise; Encourage no tobacco use; Encourage regular mammograms starting age 40; Followed with Q3 year pap smear and high risk HPV typing Sade Jeffries, [facility]- [address], [place], [address], [facility] 04/21/2020 11:50:17 05/17/2021 text/html Patient is a 45y o who presents for an annual exam. and some concerns. Last year started slynd for dysmenorrhea, but took 2 packs and was getting migraines (with aura). She rarely gets them now. Also has low back and hip pain. Worse before her period. Denies constipation. Has a history of fibroids with no US in 3-4 years. last pap-2017, 2018, 2019 NILM mammogram-04/2020 sexually active-y contraception-cond oms seatbelts-y exercise-y depression-denies domestic violence-denies tobacco-n concerns-n Idalia Galdamez MD [address], [place], [address], [facility] 05/17/2021 14:11:28 06/21/2021 text/html Here for follow up dysmenorrhea. US done 05/23 showed two small fibroids (1.6cm and 1.9cm) and bilateral small ovarian cysts. No cause for pain seen. May not have estrogen, she doesn't like hormonal treatment anyways. Takes aleve for her menstrual pain. Feels it a lot in her back, where she has had steroid shots and done PT for her pain. Pain is mostly back, hips, thighs. Idalia Galdamez MD [address], [place], [address], [facility] 06/24/2021 09:57:20 OBGyn Episode Ob Episode Information Episode Created Date Number of Fetuses Patient Bloodtype Patient rh Status Prepregnancy Weight lbs Domestic Partner Domestic Partner Phone Father Name Corduroy Brusher Operator Status 04/06/20 20 1 CLOSED Fetus Data First Name Last Name Admitted to NICU Weight (g) Sex Living Outcome Pediatric Complications Fetus ID Race Codes Race Delivery Type , Spontane ous [id number] Cheo Calculation Initial Cheo Date Initial Exam Date Initial Exam Provider Initial Ultrasound Date Last Menstrual Period Date Ultra Sound Weeks Gestation 0 Eighteen To Twenty Week Cheo Update Ultra Sound Date Fundal Height At Umbil Quickening Date Ultra Sound Latest Weeks Gestation Final Cheo Confirmed By Final Cheo Confirmed Date Final Cheo Date Ultra Sound Latest Days Gestation 0 0 Menstrual History Last Menstrual Date Menses Monthly On Bcp Conception Prior Menses Frequency Hcg Plus Date Menarche Onset Age Delivery Information Delivery Date Delivery Type Labor Anesthesia Weeks Gestation Incision Type Labor Labor Length Hrs Delivered By Post Complications Tubal Sterilization Discharge Date Comments 5 Discharge Information Feeding Method Contraceptive Method Maternal HG B and HCT Levels Ob Episode Information Episode Created Date Number of Fetuses Patient Bloodtype Patient rh Status Prepregnancy Weight lbs Domestic Partner Domestic Partner Phone Father Name Corduroy Brusher Operator Status 04/06/20 20 1 CLOSED Fetus Data First Name Last Name Admitted to NICU Weight (g) Sex Living Outcome Pediatric Complications Fetus ID Race Codes Race Delivery Type [id number] Primary Cheo Calculation Initial Cheo Date Initial Exam Date Initial Exam Provider Initial Ultrasound Date Last Menstrual Period Date Ultra Sound Weeks Gestation 0 Eighteen To Twenty Week Cheo Update Ultra Sound Date Fundal Height At Umbil Quickening Date Ultra Sound Latest Weeks Gestation Final Cheo Confirmed By Final Cheo Confirmed Date Final Cheo Date Ultra Sound Latest Days Gestation 0 0 Menstrual History Last Menstrual Date Menses Monthly On Bcp Conception Prior Menses Frequency Hcg Plus Date Menarche Onset Age Delivery Information Delivery Date Delivery Type Labor Anesthesia Weeks Gestation Incision Type Labor Labor Length Hrs Delivered By Post Complications Tubal Sterilization Discharge Date Comments 9 Discharge Information Feeding Method Contraceptive Method Maternal HG B and HCT Levels
--- OUTSIDE RECORDS SUMMARY | 2025-01-09 00:39 | XMS_ITS | Encounter Summary ---
Author Organization [facility] Address [address] [place] [address] Care Team Providers Care Division Officer Weapons Department Name Role Phone Florentino Garza MD Primary Care Provider [phone] Encounter Details Date Type Department Care Team (Late st Contact Info) Description 07/09/2007 Orders Only [facility] Internal Medicine [address] [address] Florentino Garza MD [address] [place] [address] Social History Tobacco Use Types Packs/Day Years Used Date Smoking Tobacco: Never Assessed Comments Unknown Sex and Gender Information Value Date Recorded Sex Assigned at Not on file Legal Sex Female 3:59 AM HAM STRINGER Gender Identity Not on file Sexual Orientation Not on file documented as of this encounter Progress Notes * Florentino Garza MD - 11/17/2007 4:51 PM CDT WEIGHT: 221lbs BLOOD PRESSURE: 120/80 Right Arm Sitting TEMPERATURE: 36.67??c Oral NURSE NAME: Joanne Andujar R TOBACCO USE Patient does not currently use tobacco. CHIEF COMPLAINT Patient complains of earaches. HISTORY: sinus patti ear aches x 1 mo ears feel full SOCIAL HISTORY: TOBACCO USE: Has no significant smoking history. DISCUSSED SMOKING: neg. PHYSICAL EXAMINATION: EARS, NOSE, MOUTH AND THROAT: EARS: EFFUSION PRESENT BILATERALLY, TYMPANIC MEMBRANES INFLAMED BILATERALLY. ORAL: Normal oropharynx. NECK/THYROID: Trachea midline. No thyroid enlargement, tenderness, or mass. No supraclavicular or cervical adenopathy. RESPIRATORY: Clear to auscultation and percussion. Normal respiratory effort. CARDIOVASCULAR: CARDIAC: Regular rhythm. No murmurs, rubs, or gallops. EDEMA/VARICOSITIES OF EXTREMITIES: No edema or varicosities. ASSESSMENT/PLAN: 796.2-BLOOD PRESSURE ELEVATED W/O DX OF HTN better pt working on diet and exercise 461.9-SINUSITIS UNSPECIFIED rx MEDICATIONS: LEVAQUIN ORAL TABLET 500 MG, 1 Every Day, 10 Dispensed, status: NEW PRESCRIPTION, 07/09/2007. FLONASE NASAL SUSPENSION 50 MCG/ACT, 2 Every Morning, 1 Dispensed, 2 Fills, status: NEW PRESCRIPTION, 07/09/2007. Patient Education: Risks, benefits, and possible side effects of medication(s) were reviewed with the patient. The patient was allowed to ask questions to stated satisfaction. RETURN VISIT : Instructed to call if not improving. Electronically Signed by: Florentino Garza MD on Monday, July 09, 2007 documented in this encounter Plan of Treatment Upcoming Encounters Date Type Department Care Team (Late st Contact Info) Description 03/16/2025 9:30 AM CDT [facility] [address] [facility] [address] [place] [phone] Misty Sandra PA [address] [facility] [address] [place] [address] documented as of this encounter Visit Diagnoses Not on filedocumented in this encounter Additional Health Concerns Infection Onset Date Last Indicated Resolved Time R/O C. diff 05/27/2024 05/25/2024 05/27/2024 3:36 PM HAM STRINGER documented as of this encounter Care Teams Division Officer Weapons Department Relationship Specialty Start Date End Date Florentino Garza MD PCP - General 11/04/07 documented as of this encounter
--- OUTSIDE RECORDS SUMMARY | 2025-01-09 00:39 | XMS_ITS | Encounter Summary ---
Author Organization [facility] Address [address] [place] [address] Care Team Providers Care Biofuels Manager Name Role Phone Florentino Garza MD Primary Care Provider [phone] Encounter Details Date Type Department Care Team (Late st Contact Info) Description 05/20/2005 Outpatient Historical [facility] Internal Medicine [address] [address] Florentino Garza MD [address] [place] [address] Social History Tobacco Use Types Packs/Day Years Used Date Smoking Tobacco: Never Assessed Comments Unknown Sex and Gender Information Value Date Recorded Sex Assigned at Not on file Legal Sex Female 3:59 AM DIABETES MANAGER Gender Identity Not on file Sexual Orientation Not on file documented as of this encounter Last Filed Vital Signs Vital Sign Reading Time Taken Comments Blood Pressure 110/70 05/20/2005 9:00 AM DIABETES MANAGER Pulse - - Temperature - - Respiratory Rate - - Oxygen Saturation - - Inhaled Oxygen Concentration - - Weight 103 kg (227 lb) 05/20/2005 9:00 AM DIABETES MANAGER Height - - Body Mass Index 41.52 08/02/2004 1:30 PM DIABETES MANAGER documented in this encounter Plan of Treatment Upcoming Encounters Date Type Department Care Team (Late st Contact Info) Description 03/16/2025 9:30 AM CDT Office Visit [facility] Primary Care [facility] [address] [place] [address] Misty Sandra PA [address] [facility] [address] [place] [address] documented as of this encounter Visit Diagnoses Not on filedocumented in this encounter Additional Health Concerns Infection Onset Date Last Indicated Resolved Time R/O C. diff 05/27/2024 05/25/2024 05/27/2024 3:36 PM DIABETES MANAGER documented as of this encounter Care Teams Biofuels Manager Relationship Specialty Start Date End Date Florentino Garza MD PCP - General 11/04/07 documented as of this encounter
--- OUTSIDE RECORDS SUMMARY | 2025-01-09 00:39 | XMS_ITS | Encounter Summary ---
Author Organization [facility] Address [address] [place] [address] Care Team Providers Care Motor Coach Operator Name Role Phone Florentino Garza MD Primary Care Provider [phone] Encounter Details Date Type Department Care Team (Late st Contact Info) Description 01/15/2023 Lab Requisition [facility] - [facility] [address] [facility], [place] [address] Esperanza Estrella DO [address] [facility] [address] [place] [address] Social History Tobacco Use Types Packs/Day Years Used Date Smoking Tobacco: Never Assessed Alcohol Use Standard Drinks/Week Comments No 0 (1 standard drink = 0.6 oz pur e alcohol) Comments No Sex and Gender Information Value Date Recorded Sex Assigned at Not on file Legal Sex Female 7:21 PM MANGLE TENDER Gender Identity Not on file Sexual Orientation Not on file documented as of this encounter Plan of Treatment Not on file documented as of this encounter Procedures Procedure Name Priority Date/Time Associated Diagnosis Comments DERMATOPATHOLOGY Routine 01/15/2023 10:1 4 AM CDT documented in this encounter Results * DERMATOPATHOLOGY (01/15/2023 10:14 AM CDT) Case Report Dermatopathology Report Case: [id number] Authorizing Provider: Esperanza Estrella DO Collected: 01/15/2023 10:14 AM Ordering Location: [facility] Received: 01/16/2023 01:54 PM Pathologist: Leah Gavin MD Specimens: A) - Skin, left neck B) - Skin, right upper back 1:03 PM CDT DERMATOPATHOLOGY LABORATORY Final Diagnosis Specimen A. SKIN, left neck: INTRADERMAL MELANOCYTIC NEVUS (D22.4) Specimen B. SKIN, right upper back: LENTIGINOUS MELANOCYTIC NEVUS, COMPOUND TYPE, IRRITATED (D22.5) POST-INFLAMMATORY PIGMENT ALTERATION (L81.9) (see microscopic description and comment) 1:03 PM T DERMATOPATHOLOGY LABORATORY at 1303 CDT Clinical History A-B: NEVUS R/O ATYPIA 1:03 PM T DERMATOPATHOLOGY LABORATORY Gross Description Specimen A: Received is one formalin filled container labeled with the patient's name and designated left neck. The specimen consists of a shave biopsy measuring 5x4x2 mm. Jar 0. Specimen B: Received is one formalin filled container labeled with the patient's name and designated right upper back. The specimen consists of a shave biopsy measuring 7x6x1 mm. Jar 0. 1:03 PM CDT DERMATOPATHOLOGY LABORATORY Microscopic Description Specimen A. SKIN, left neck: There are nests of cytologically bland melanocytes within the dermis that mature with depth. Specimen B. SKIN, right upper back: This is a compound nevus. There is melanin pigment in the stratum corneum. There is a lentiginous proliferation of melanocytes between nevus nests of cells along the dermal epidermal junction. There is underlying fibroplasia of the papillary dermis. The intradermal component is bland in appearance and matures with depth. (Compound Bennett's Nevus) This lesion is present at the margin of the specimen. Sections show abundant melanin within melanophages around the superficial vascular plexus. COMMENT: If this specimen is sampled from a larger lesion, these findings may not be service representative of the entire lesion. Clinicopathologic correlation is recommended. 3 1:03 PM CDT DERMATOPATHOLOGY LABORATORY Disclaimer An external and internal positive and negative controls are appropriate for the histochemical, immunohistochemical and immunofluorescence stain(s) in this case (if any), except where stated explicitly. The performance characteristics of the stain(s) cited in this report were developed and its performance characteristic determined by the Dermatopathology Laboratory at [facility], directed by Dr. Anna Mccallum. These tests need not be, and therefore are not, approved by the [place] Food and Drug Administration. The tests are used for clinical purposes. Billing Codes Specimen Charges Stain Charges 82316 79599 1 1 3 1:03 PM CDT DERMATOPATHOLOGY LABORATORY Embedded Images 3 1:03 PM CDT DERMATOPATHOLOGY LABORATORY Pathology/Cytology TISSUE SPECIMEN FROM SKIN / Unknown 01/15/2023 10:14 AM CDT 01/16/2023 1:54 PM CDT Miscellaneous samples (specimen) TISSUE SPECIMEN FROM SKIN / Unknown 01/15/2023 10:14 AM CDT 01/16/2023 1:54 PM CDT us Esperanza Estrella DO LAB - PATHOLOGY/CYTOLOGY ORDERABLES Final Result DERMATOPATHOLOGY LABORATORY [facility] - Department of Dermatology [facility] [address] [place] [address], [address] [phone] documented in this encounter Visit Diagnoses Not on filedocumented in this encounter Care Teams Motor Coach Operator Relationship Specialty Start Date End Date Florentino Garza MD PCP - General 07/25/09 documented as of this encounter
--- OUTSIDE RECORDS SUMMARY | 2025-01-09 00:39 | XMS_ITS | Encounter Summary ---
Author Organization [facility] Address [address] [place] [address] Care Team Providers Care Physical Fitness Trainer Name Role Phone Florentino Garza MD Primary Care Provider [phone] Reason for Visit * Reason Onset Date Comments yellow flag infection 07/15/2022 Encounter Details Date Type Department Care Team (Late st Contact Info) Description 07/15/2022 Telephone [facility] Primary Care [address] [place] [address] Florentino Garza MD [address] [place] [address] [address] [place] [address] yellow flag infection Social History Tobacco Use Types Packs/Day Years Used Date Smoking Tobacco: Never Smokeless Tobacco: Never Alcohol Use Standard Drinks/Week Comments Yes 0 (1 standard drink = 0.6 oz pur e alcohol) beer, wine 2 -3 x's per year Comments No Sex and Gender Information Value Date Recorded Sex Assigned at Not on file Legal Sex Female 3:59 AM SENIOR SQL SERVER DEVELOPER Gender Identity Not on file Sexual Orientation Not on file COVID-19 Exposure Response Date Recorded In the last 10 days, have yo u been in contact with someone who was confirmed or suspected to have Coronavirus/COVID-19? No / Unsure 07/18/2022 9:17 AM SENIOR SQL SERVER DEVELOPER documented as of this encounter Miscellaneous Notes * Telephone Encounter - Cherelle Valdes - 07/16/2022 12:13 PM CST Appointment made OR SQL SERVER DEVELOPER * Telephone Encounter - Shilpa Smith FNP - 07/15/2022 2:07 PM SENIOR SQL SERVER DEVELOPER Please call pt to offer appointment for this week, Thursday ok if that is the only day she can do. Advise to go to urgent care if getting worse or develops a fever. OR SQL SERVER DEVELOPER * Telephone Encounter - Babs Wiley - 07/15/2022 1:36 PM CST Describe problem: Red swollen Bump, on abdomen . Right side, it has come to head, red sore, tender,close to half dollar size Onset: 1 week, had this i n January and went to urgent care, and they drained it, Severity: moderate Progression: worse What has been tried to alleviate symptoms? Nothing Call back number: [phone] Home Phone Work Phone Date of Last Encounter: 07/04/2022 Preferred Pharmacy: [facility] [address] [place] [address] [place] [address] Appointment scheduled regarding this concern No,may need a procedure visit , she wants to come to come in on Thursday, it is the only day she has off Caller also advised to call back: in 48 hours if they have not received contact at any time if the condition worsens or they develop new symptoms they are concerned about. Agent notified patient/caller of the call back advice. OR SQL SERVER DEVELOPER documented in this encounter Plan of Treatment Upcoming Encounters Date Type Department Care Team (Late st Contact Info) Description 03/16/2025 9:30 AM CDT Office Visit [facility] Primary Care [facility] [address] [facility] [address] [place] [address] Misty Sandra PA [address] [facility] [address] [place] [address] documented as of this encounter Visit Diagnoses Not on filedocumented in this encounter Additional Health Concerns Infection Onset Date Last Indicated Resolved Time R/O C. diff 05/27/2024 05/25/2024 05/27/2024 3:36 PM SENIOR SQL SERVER DEVELOPER documented as of this encounter Care Teams Physical Fitness Trainer Relationship Specialty Start Date End Date Florentino Garza MD PCP - General 11/04/07 documented as of this encounter
--- OUTSIDE RECORDS SUMMARY | 2025-01-09 00:39 | XMS_ITS | Encounter Summary ---
Author Organization [facility] Address [address] [place] [address] Care Team Providers Care Day Guard Name Role Phone Florentino Garza MD Primary Care Provider [phone] Encounter Details Date Type Department Care Team (Late st Contact Info) Description 02/22/2007 Outpatient Historical [facility] Internal Medicine [address] [address] Florentino Garza MD [address] [place] [address] [address] [place] [address] Social History Tobacco Use Types Packs/Day Years Used Date Smoking Tobacco: Never Assessed Comments Unknown Sex and Gender Information Value Date Recorded Sex Assigned at Not on file Legal Sex Female 3:59 AM AR MANAGER Gender Identity Not on file Sexual Orientation Not on file documented as of this encounter Plan of Treatment Upcoming Encounters Date Type Department Care Team (Late st Contact Info) Description 03/16/2025 9:30 AM CDT Office Visit [facility] Primary Care [address] [place] [address] Misty Sandra PA [address] [place] [address] [address] [place] [address] documented as of this encounter Visit Diagnoses Not on filedocumented in this encounter Additional Health Concerns Infection Onset Date Last Indicated Resolved Time R/O C. diff 05/27/2024 05/25/2024 05/27/2024 3:36 PM AR MANAGER documented as of this encounter Care Teams Day Guard Relationship Specialty Start Date End Date Florentino Garza MD PCP - General 11/04/07 documented as of this encounter
--- OUTSIDE RECORDS SUMMARY | 2025-01-09 00:39 | XMS_ITS | Encounter Summary ---
Author Organization [facility] Address [address] [place] [address] Care Team Providers Care Skill Labor Name Role Phone Florentino Garza MD Primary Care Provider [phone] Encounter Details Date Type Department Care Team (Late st Contact Info) Description 08/02/2004 Outpatient Historical [facility] Internal Medicine [address] [address] Robbie Rogers MD [address] [place] [address] Social History Tobacco Use Types Packs/Day Years Used Date Smoking Tobacco: Never Assessed Comments Unknown Sex and Gender Information Value Date Recorded Sex Assigned at Not on file Legal Sex Female 3:59 AM ARTS MANAGER Gender Identity Not on file Sexual Orientation Not on file documented as of this encounter Last Filed Vital Signs Vital Sign Reading Time Taken Comments Blood Pressure 124/80 08/02/2004 1:30 PM ARTS MANAGER Pulse - - Temperature - - Respiratory Rate - - Oxygen Saturation - - Inhaled Oxygen Concentration - - Weight 100.2 kg (221 lb) 08/02/2004 1:30 PM ARTS MANAGER Height 157.5 cm (5' 2) 08/02/2004 1:30 PM ARTS MANAGER Body Mass Index 40.42 08/02/2004 1:30 PM ARTS MANAGER documented in this encounter Plan of Treatment Upcoming Encounters Date Type Department Care Team (Late st Contact Info) Description 03/16/2025 9:30 AM CDT Office Visit [facility] Primary Care [facility] [address] [facility] [address] [place] [address] Misty Sandra PA [address] [facility] [address] [place] [address] documented as of this encounter Visit Diagnoses Not on filedocumented in this encounter Additional Health Concerns Infection Onset Date Last Indicated Resolved Time R/O C. diff 05/27/2024 05/25/2024 05/27/2024 3:36 PM ARTS MANAGER documented as of this encounter Care Teams Skill Labor Relationship Specialty Start Date End Date Florentino Garza MD PCP - General 11/04/07 documented as of this encounter
--- OUTSIDE RECORDS SUMMARY | 2025-01-09 00:39 | XMS_ITS | Encounter Summary ---
Author Organization [facility] Address [address] [place] [address] Phone Care Team Providers Care Materials Tech Name Role Phone Matilde Kemp DO Primary Care Provider [phone] Florentino Garza MD Primary Care Provider [phone] Reason for Visit * Reason Comments Medication Refill Encounter Details Date Type Department Care Team (Late st Contact Info) Description 01/05/2022 Refill [facility]ial [facility] - [facility] [place] [address] [place] [address] Racheal Nj APRN, MOBILITY ENGINEER [address] [place] [address] Medication Refill Social History Tobacco Use Types Packs/Day Years Used Date Smoking Tobacco: Never Smokeless Tobacco: Never Alcohol Use Standard Drinks/Week Comments Not Currently [...] suspected to have Coronavirus/COVID-19? No / Unsure 12/30/2021 6:12 PM CDT documented as of this encounter Plan of Treatment Not on file documented as of this encounter Visit Diagnoses Diagnosis Injury of calf Right calf pain documented in this encounter Additional Health Concerns Infection Onset Date Last Indicated Resolved Time COVID - 19 02/09/2022 02/09/2022 02/19/2022 12:1 6 AM CDT Respiratory Rule Out - RPA 04/26/2023 04/26/2023 1 3:54 PM CDT documented as of this encounter Care Teams Materials Tech Relationship Specialty Start Date End Date Matilde Kemp DO [address] [place] [address] PCP - General Family Medicine 12/30/21 02/02/22 Florentino Garza MD [address] [place] [phone] PCP - General 02/03/22 documented as of this encounter
--- OUTSIDE RECORDS SUMMARY | 2025-01-09 00:39 | XMS_ITS | Encounter Summary ---
Author Organization [facility] Address [address] [place] [address] Care Team Providers Care Dialysis Patient Care Technician Name Role Phone Florentino Garza MD Primary Care Provider [phone] Encounter Details Date Type Department Care Team (Late st Contact Info) Description 07/17/2005 Outpatient [facility] Internal Medicine [address] [address] Florentino Garza MD [address] [place] [address] Social History Tobacco Use Types Packs/Day Years Used Date Smoking Tobacco: Never Assessed Comments Unknown Sex and Gender Information Value Date Recorded Sex Assigned at Not on file Legal Sex Female 3:59 AM SPORTS EQUIPMENT REPAIRER Gender Identity Not on file Sexual Orientation Not on file documented as of this encounter Last Filed Vital Signs Vital Sign Reading Time Taken Comments Blood Pressure 130/70 07/17/2005 2:15 PM SPORTS EQUIPMENT REPAIRER Pulse - - Temperature - - Respiratory Rate - - Oxygen Saturation - - Inhaled Oxygen Concentration - - Weight 106.1 kg (234 lb) 07/17/2005 2:15 PM SPORTS EQUIPMENT REPAIRER Height - - Body Mass Index 42.8 08/02/2004 1:30 PM SPORTS EQUIPMENT REPAIRER documented in this encounter Plan of Treatment Upcoming Encounters Date Type Department Care Team (Late st Contact Info) Description 03/16/2025 9:30 AM CDT Office Visit [facility] Primary Care [facility] [address] [facility] [address] [place] [address] Misty Sandra PA [address] [facility] [address] [place] [address] documented as of this encounter Visit Diagnoses Not on filedocumented in this encounter Additional Health Concerns Infection Onset Date Last Indicated Resolved Time R/O C. diff 05/27/2024 05/25/2024 05/27/2024 3:36 PM SPORTS EQUIPMENT REPAIRER documented as of this encounter Care Teams Dialysis Patient Care Technician Relationship Specialty Start Date End Date Florentino Garza MD PCP - General 11/04/07 documented as of this encounter
--- OUTSIDE RECORDS SUMMARY | 2025-01-09 00:39 | XMS_ITS | Clinical Summary ---
Author Organization [facility] Address [address] [place] [address] Care Team Providers Care Orthotic Technician Name Role Phone Florentino Garza MD Primary Care Provider [phone] Source Comments [facility],non-owned Affiliates and Associated Physician Practices is amultiple site organization consisting of ambulatory clinics and hospital sitesin [place], [place], [place] and [place]. This disclosure is being madepursuant to the Care Everywhere program and may not contain all information available regarding this patient. Last updated 18.[facility] Allergies Active Allergy Reactions Criticality Noted Date Comments Ciprofloxacin Rash Medium 09/14/2015 Medications * Be aware that medications may not be up to date on this document. Alwaysverify current medications with the patient. Naproxen Sodium (ALEVE) 220 MG Activ e norethindrone (JENY) 0.35 MG tablet Take 1 tablet by mouth every 24 hours 01/28/2019 Active Active Problems Problem Noted Date Diagnosed Date Encounter for supervision of high-risk with elderly multigravida 04/16/2018 Abnormal quad screen 04/16/2018 Melanocytic nevus 05/24/2010 Other rosacea 05/24/2010 Other hypertrophic disorders of the skin 010 Overview (10/05/2017): Snip done 09/11/09 Family History Medical History Relation Name Comments Cancer Other BCC Relation Name Status Comments Other Social History Tobacco Use Types Packs/Day Years Used Date Smoking Tobacco: Never Assessed Alcohol Use Standard Drinks/Week Comments No 0 (1 standard drink = 0.6 oz pur e alcohol) Comments No Sex and Gender Information Value Date Recorded Sex Assigned at Not on file Legal Sex Female 7:21 PM SCIENTIFIC PROCESS OPERATOR Gender Identity Not on file Sexual Orientation Not on file Last Filed Vital Signs Vital Sign Reading Time Taken Comments Blood Pressure 122/82 03/05/2019 10:09 AM CDT Pulse 88 03/05/2019 10:09 AM CDT Temperature 37 C (98.6 F) 03/05/2019 10:09 AM CDT Respiratory Rate - - Oxygen Saturation - - Inhaled Oxygen Concentration - - Weight 108.9 kg (240 lb) 03/05/2019 10:09 AM CDT Height 167.6 cm (5' 6) 03/05/2019 10:09 AM CDT Body Mass Index 38.74 03/05/2019 10:09 AM CDT Plan of Treatment Health Maintenance Due Date Last Done Comments COLOGUARD (AGES 45-75) - COL ON CA SCREENING 1974 COLON MONITORING 1974 COLONOSCOPY - COLON CA SCREENING 1974 CT COLONOGRAPHY - COLON CA SCREENING 1974 Colorectal Cancer Screening 1974 FIT - COLON CA SCREENING 1974 FLEX SIG - COLON CA SCREENING 1974 LIPID TESTING 1974 MAMMOGRAM 1974 HIV SCREENING 1989 HEPATITIS C SCREENING 07/27/1992 DTAP/TDAP/TD VACCINES (1 - Tdap) 1993 HEPATITIS B VACCINE (1 of 3 - 19+ 3-dose series) 1993 PAP SMEAR 1995 SCREENING FOR DIABETES 03/05/2019 COVID-19 VACCINE (1 - 2023-2 5 season) 2024 DEPRESSION SCREENING 07/06/2024 PNEUMOCOCCAL VACCINE 50+ (1 of 1 - PCV) 2024 ZOSTER VACCINE (1 of 2) 2024 INFLUENZA VACCINE (Season Ended) 2025 HIB VACCINE Aged Out No longer eligi ble based on patient's age to complete this topic HPV VACCINE Aged Out No longer eligi ble based on patient's age to complete this topic MENINGOCOCCAL (Group B) VACC INE SHARED DECISION-MAKING Aged Out No longer eligibl e based on patient's age to complete this topic MENINGOCOCCAL GROUPS A/C/Y/W VACCINE Aged Out No longer eligible b ased on patient's age to complete this topic Insurance AET[employer] Care Teams Orthotic Technician Relationship Specialty Start Date End Date Florentino Garza MD PCP - General 07/25/09
--- OUTSIDE RECORDS SUMMARY | 2025-01-09 00:39 | XMS_ITS | Encounter Summary ---
Author Organization [facility] Address [address] [place] [address] Care Team Providers Care Transformation Specialist Name Role Phone Sigrid Franco MD Primary Care Provider [phone] Encounter Details Date Type Department Care Team (Late st Contact Info) Description 02/18/2007 Orders Only [facility] Internal Medicine [address] [address] Sigrid Franco MD [address] [place] [address] Social History Tobacco Use Types Packs/Day Years Used Date Smoking Tobacco: Never Assessed Comments Unknown Sex and Gender Information Value Date Recorded Sex Assigned at Not on file Legal Sex Female 3:59 AM ADMINISTRATIVE SUPERVISOR Gender Identity Not on file Sexual Orientation Not on file documented as of this encounter Progress Notes * Sigrid Franco MD - 11/23/2007 1:01 PM CDT CENTRAL TEST SCHEDULING DATE: FEB 18, 2007 Note created by: Veronica Figueroa R 11:00 a Patient Name : KATHY LUTZ [address]: [address] [place] [address] D.O.B: 1975 SSN: [id number] Parent/Guardian if applicable: Patient Insurance: ID#: Group#: ORDER(S) #: [id number] X Ray of right wrist BEST TO CALL HOME. PLEASE SCHEDULE THE APPOINTMENT AT THE FOLLOWING LOCATION: WHERE SCHEDULED. patient to walk in ORDERING PHYSICIAN: SIGRID FRANCO MD OFFICE SOLAR DESIGN ENGINEER & PHONE: Veronica Figueroa R * Sigrid Franco MD - 11/23/2007 1:01 PM CDT WHO TOOK THE CALL: Sigrid Franco M TIME:03:18 pm wrist x ray neg--inflammation is in [facility] 02/18/07 03:21 pm STAFF FOLLOW UP: Spoke with patient and gave the following message. -tj Electronically Signed by: Jody Peters on February * Sigrid Franco MD - 11/23/2007 1:01 PM CDT WEIGHT: 215lbs BLOOD PRESSURE: 124/80 Right Arm Sitting NURSE NAME: Jody Peters J CHIEF COMPLAINT Patient complains of. 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 DISCUSSED SMOKING: neg. PHYSICAL EXAMINATION: RESPIRATORY: Clear to auscultation and percussion. Normal respiratory effort. CARDIOVASCULAR: CARDIAC: Regular rhythm. No murmurs, rubs, or gallops. MUSCULOSKELETAL EXAM: dorsal inflammation , tenderness ASSESSMENT/PLAN: 715.17-OSTEOARTHROSIS AND ALLIED DISORDERS inflammation, cannot r/o small neuroma, rx, x ray, if persists refer hand surgeon MEDICATIONS: MEDROL (KATERYNA) ORAL TABLET 4 MG, DIRECTED, 1 Dispensed, status: NEW PRESCRIPTION, 02/18/2007. CELEBREX ORAL CAPSULE CONVENTIONAL 200 MG, 1 Every Day, 30 Dispensed, status: NEW PRESCRIPTION, 02/18/2007. LAB ORDERS: Order number: [id number] Test Ordered: XRAY WRIST RIGHT Patient Education: Risks, benefits, and possible side effects of medication(s) were reviewed with the patient. RETURN VISIT : Instructed to call if not improving.not for off work until Thursday Electronically Signed by: Sigrid Franco MD on February documented in this encounter Plan of Treatment Upcoming Encounters Date Type Department Care Team (Late st Contact Info) Description 03/16/2025 9:30 AM CDT Office Visit [facility] Primary Care [facility] [address] [address] Misty Sandra PA [address] [facility] [address] [place] [phone] documented as of this encounter Visit Diagnoses Not on filedocumented in this encounter Additional Health Concerns Infection Onset Date Last Indicated Resolved Time R/O C. diff 05/27/2024 05/25/2024 05/27/2024 3:36 PM ADMINISTRATIVE SUPERVISOR documented as of this encounter Care Teams Transformation Specialist Relationship Specialty Start Date End Date Sigrid Franco MD PCP - General 11/04/07 documented as of this encounter
--- OUTSIDE RECORDS SUMMARY | 2025-01-09 00:39 | XMS_ITS | Encounter Summary ---
Author Organization [facility] Address [address] [place] [address] Care Team Providers Care Marine Transport Professionals Name Role Phone Florentino Garza MD Primary Care Provider [phone] Encounter Details Date Type Department Care Team (Late st Contact Info) Description 02/18/2007 Outpatient Historical [facility] Internal Medicine [address] [address] Florentino Garza MD [address] [place] [address] Social History Tobacco Use Types Packs/Day Years Used Date Smoking Tobacco: Never Assessed Comments Unknown Sex and Gender Information Value Date Recorded Sex Assigned at Not on file Legal Sex Female 3:59 AM LAND LEVELER Gender Identity Not on file Sexual Orientation Not on file documented as of this encounter Last Filed Vital Signs Vital Sign Reading Time Taken Comments Blood Pressure 124/80 02/18/2007 9:45 AM CDT Pulse - - Temperature - - Respiratory Rate - - Oxygen Saturation - - Inhaled Oxygen Concentration - - Weight 97.5 kg (215 lb) 02/18/2007 9:45 AM CDT Height - - Body Mass Index 39.32 08/02/2004 1:30 PM LAND LEVELER documented in this encounter Plan of Treatment Upcoming Encounters Date Type Department Care Team (Late st Contact Info) Description 03/16/2025 9:30 AM CDT Office Visit [facility] Primary Care [facility] [address] [place] [address] Misty Sandra PA [address] [facility] [address] [place] [address] documented as of this encounter Visit Diagnoses Not on filedocumented in this encounter Additional Health Concerns Infection Onset Date Last Indicated Resolved Time R/O C. diff 05/27/2024 05/25/2024 05/27/2024 3:36 PM LAND LEVELER documented as of this encounter Care Teams Marine Transport Professionals Relationship Specialty Start Date End Date Florentino Garza MD PCP - General 11/04/07 documented as of this encounter
--- OUTSIDE RECORDS SUMMARY | 2025-01-09 00:39 | XMS_ITS | Encounter Summary ---
Author Organization [facility] Address [address] [place] [address] Care Team Providers Care Snowsport Instructor Name Role Phone Florentino Garza MD Primary Care Provider Reason for Visit * Reason Comments Information Encounter Details Date Type Department Care Team (Late st Contact Info) Description 05/19/2024 Telephone [facility] Primary Care [address] [place] [address] Florentino Garza MD [address] [place] [address] [address] [place] [address] Information Social History Tobacco Use Types Packs/Day Years Used Date Smoking Tobacco: Never Passive Smoke Exposure: Never Smokeless Tobacco: Never Alcohol Use Standard Drinks/Week Comments Yes 0 (1 standard drink = 0.6 oz pur e alcohol) beer, wine 2 -3 x's per year Comments No Sex and Gender Information Value Date Recorded Sex Assigned at Not on file Legal Sex Female 3:59 AM VETERINARY SCIENCE TEACHER Gender Identity Not on file Sexual Orientation Not on file documented as of this encounter Miscellaneous Notes * Telephone Encounter - Radha Khan - 05/19/2024 9:42 AM CST Copied from [facility] #[id number]. Topic: Patient or Caregiver Communication Request >> May 19, 2024 9:38 AM Radha Freeman wrote: Patient or Caregiver requesting that a message be sent to Care Team Caller: Yesy Valera Patient/Caregiver Callback Number: [phone] (home) Call Notes: Patient wanted to let Dr. Garza know that she's on a new medication that was prescribed to her by another doctor. The medication is (semaglutide (Ozempic) 0.25 mg or 0.5 mg (2 mg/3 mL) Pen Injector) RINARY SCIENCE TEACHER documented in this encounter Plan of Treatment Upcoming Encounters Date Type Department Care Team (Late st Contact Info) Description 03/16/2025 9:30 AM CDT Office Visit [facility] Care [facility] [address] [place] [address] [place] [address] Misty Sandra PA [address] [facility] [address] [place] [address] documented as of this encounter Visit Diagnoses Not on filedocumented in this encounter Additional Health Concerns Infection Onset Date Last Indicated Resolved Time R/O C. diff 05/27/2024 05/25/2024 05/27/2024 3:36 PM VETERINARY SCIENCE TEACHER documented as of this encounter Care Teams Snowsport Instructor Relationship Specialty Start Date End Date Florentino Garza MD PCP - General 11/04/07 documented as of this encounter
--- OUTSIDE RECORDS SUMMARY | 2025-01-09 00:39 | XMS_ITS | Encounter Summary ---
Author Organization [facility] Address [address] [place] [address] Care Team Providers Care Line Haul Truck Driver Name Role Phone Florentino Garza MD Primary Care Provider [phone] Encounter Details Date Type Department Care Team (Late st Contact Info) Description 07/17/2005 Orders Only [facility] Internal Medicine [address] [address] Florentino Garza MD [address] [place] [address] Social History Tobacco Use Types Packs/Day Years Used Date Smoking Tobacco: Never Assessed Comments Unknown Sex and Gender Information Value Date Recorded Sex Assigned at Not on file Legal Sex Female 3:59 AM KINDERGARTEN INSTRUCTIONAL ASSISTANT Gender Identity Not on file Sexual Orientation Not on file documented as of this encounter Progress Notes * Florentino Garza MD - 04/13/2008 11:09 AM CDT WEIGHT: 234lbs BLOOD PRESSURE: 130/70 Right Arm Sitting NURSE NAME: Joanne Andujar R CHIEF COMPLAINT Here for follow up evaluation. herpes zoster. c/o anxiety HISTORY: HISTORY: 053.9-HERPES ZOSTER/SHINGLES The lesion is stable. The patient denies any pain or new lesions. 300.00-ANXIETY The anxiety has worsened.stress with work, but longstanding, moving to [facility] PHYSICAL EXAMINATION: CONSTITUTIONAL: GENERAL APPEARANCE: Healthy appearing patient in no distress. NECK/THYROID: Trachea midline. No thyroid enlargement, tenderness, or mass. No supraclavicular or cervical adenopathy. RESPIRATORY: Clear to auscultation and percussion. Normal respiratory effort. CARDIOVASCULAR: CARDIAC: Regular rhythm. No murmurs, rubs, or gallops. ARTERIAL: Aortic pulses of normal amplitude with no bruits. EDEMA/VARICOSITIES OF EXTREMITIES: No edema or varicosities. ASSESSMENT/PLAN: 053.9-HERPES ZOSTER/SHINGLES better, discussed 300.00-ANXIETY add med MEDICATIONS: LEXAPRO ORAL TABLET 10 MG, 1 Every Day, 30 Dispensed, status: NEW PRESCRIPTION, 07/17/2005. RETURN VISIT : Patient instructed to return in 2 months. Electronically Signed by: Florentino Garza MD on July documented in this encounter Plan of Treatment Upcoming Encounters Date Type Department Care Team (Late st Contact Info) Description 03/16/2025 9:30 AM CDT Office Visit [facility] Primary Care [facility] [address] [address] Misty Sandra PA [address] [facility] [address] [place] [phone] documented as of this encounter Visit Diagnoses Not on filedocumented in this encounter Additional Health Concerns Infection Onset Date Last Indicated Resolved Time R/O C. diff 05/27/2024 05/25/2024 05/27/2024 3:36 PM KINDERGARTEN INSTRUCTIONAL ASSISTANT documented as of this encounter Care Teams Line Haul Truck Driver Relationship Specialty Start Date End Date Florentino Garza MD PCP - General 11/04/07 documented as of this encounter
--- OUTSIDE RECORDS SUMMARY | 2025-01-09 00:39 | XMS_ITS | Encounter Summary ---
Author Organization [facility] Address [address] [place] [address] Care Team Providers Care Sleever Name Role Phone Florentino Garza MD Primary Care Provider Encounter Details Date Type Department Care Team (Late st Contact Info) Description 09/25/2004 Outpatient Historical [facility] Internal Medicine [address] [address] Merlene Pryor MD NO ADDRESS ON FILE Social History Tobacco Use Types Packs/Day Years Used Date Smoking Tobacco: Never Assessed Comments Unknown Sex and Gender Information Value Date Recorded Sex Assigned at Not on file Legal Sex Female 3:59 AM MACHINE HOSE CUTTER Gender Identity Not on file Sexual Orientation Not on file documented as of this encounter Last Filed Vital Signs Vital Sign Reading Time Taken Comments Blood Pressure 120/70 09/25/2004 11:30 AM MACHINE HOSE CUTTER Pulse - - Temperature 37.3 C (99.1 F) 09/25/2004 11:30 AM MACHINE HOSE CUTTER Respiratory Rate - - Oxygen Saturation - - Inhaled Oxygen Concentration - - Weight 101.2 kg (223 lb) 09/25/2004 11:30 AM MACHINE HOSE CUTTER Height - - Body Mass Index 40.79 08/02/2004 1:30 PM MACHINE HOSE CUTTER documented in this encounter Plan of Treatment Upcoming Encounters Date Type Department Care Team (Late st Contact Info) Description 03/16/2025 9:30 AM CDT Office Visit [facility] Primary Care [facility] [address] [place] [place] [address] Misty Sandra PA [address] [place] [address] [place] [address] documented as of this encounter Visit Diagnoses Not on filedocumented in this encounter Additional Health Concerns Infection Onset Date Last Indicated Resolved Time R/O C. diff 05/27/2024 05/25/2024 05/27/2024 3:36 PM MACHINE HOSE CUTTER documented as of this encounter Care Teams Sleever Relationship Specialty Start Date End Date Florentino Garza MD PCP - General 11/04/07 documented as of this encounter
--- OUTSIDE RECORDS SUMMARY | 2025-01-09 00:39 | XMS_ITS | Encounter Summary ---
Author Organization [facility] Address [address] [place] [address] Care Team Providers Care Pecan Picker Name Role Phone Florentino Garza MD Primary Care Provider [phone] Reason for Visit * Reason Onset Date Comments Erroneous encounter-disregard 04/03/2023 Encounter Details Date Type Department Care Team (Late st Contact Info) Description 04/03/2023 Telephone [facility] Primary Care [address] [place] [address] Florentino Garza MD [address] [place] [address] [address] [place] [address] Erroneous encounter-disregard Social History Tobacco Use Types Packs/Day Years Used Date Smoking Tobacco: Never Passive Smoke Exposure: Never Smokeless Tobacco: Never Alcohol Use Standard Drinks/Week Comments Yes 0 (1 standard drink = 0.6 oz pur e alcohol) beer, wine 2 -3 x's per year Comments No Sex and Gender Information Value Date Recorded Sex Assigned at Not on file Legal Sex Female 3:59 AM SUMATRA OPENER Gender Identity Not on file Sexual Orientation Not on file documented as of this encounter Miscellaneous Notes * Telephone Encounter - Martina Cortés - 04/03/2023 10:19 AM CDT A user error has taken place: encounter opened in error, closed for administrative reasons. documented in this encounter Plan of Treatment Upcoming Encounters Date Type Department Care Team (Late st Contact Info) Description 03/16/2025 9:30 AM CDT [facility] [address] [facility] [address] [place] [address] Misty Sandra PA [address] [facility] [address] [place] [phone] documented as of this encounter Visit Diagnoses Not on filedocumented in this encounter Additional Health Concerns Infection Onset Date Last Indicated Resolved Time R/O C. diff 05/27/2024 05/25/2024 05/27/2024 3:36 PM SUMATRA OPENER documented as of this encounter Care Teams Pecan Picker Relationship Specialty Start Date End Date Florentino Garza MD PCP - General 11/04/07 documented as of this encounter
--- OUTSIDE RECORDS SUMMARY | 2025-01-09 00:39 | XMS_ITS | Patient Health Record ---
Author Organization [facility] [address] [facility] [address] [place], [place] [id number] Care Team Providers Care Electronic Tester Name Role Phone JIMENEZ MEDRANO Unavailable [phone] Reason For Referral No Information Immunizations Vaccine Route Administration Date Status Comme nts Pfizer 1st Dose IM Intramuscular 08/03/2020 Administered Pfizer 2nd Dose IM Intramuscular 08/24/2020 Administered Plan Of Treatment No Information Insurance Providers Payer Name Payer Address Payer Phone Subscriber Number Group Number Insured Name Patient Relationship to Insured Coverage Start Date Coverage End Date [employer] [address] [address] [place], [place] [id number] Yesy Valera Self - patient is the insured
--- OUTSIDE RECORDS SUMMARY | 2025-01-09 00:39 | XMS_ITS | Encounter Summary ---
Author Organization [facility] Address [address] [place] [address] Care Team Providers Care Dot Compliance Manager Name Role Phone Florentino Garza MD Primary Care Provider [phone] Encounter Details Date Type Department Care Team (Late st Contact Info) Description 07/09/2007 Outpatient Historical [facility] Internal Medicine [address] [address] Florentino Garza MD [address] [place] [address] Social History Tobacco Use Types Packs/Day Years Used Date Smoking Tobacco: Never Assessed Comments Unknown Sex and Gender Information Value Date Recorded Sex Assigned at Not on file Legal Sex Female 3:59 AM MUCK HAULER Gender Identity Not on file Sexual Orientation Not on file documented as of this encounter Last Filed Vital Signs Vital Sign Reading Time Taken Comments Blood Pressure 120/80 07/09/2007 11:45 AM MUCK HAULER Pulse - - Temperature 36.7 C (98 F) 07/09/2007 11:45 AM MUCK HAULER Respiratory Rate - - Oxygen Saturation - - Inhaled Oxygen Concentration - - Weight 100.2 kg (221 lb) 07/09/2007 11:45 AM MUCK HAULER Height - - Body Mass Index 40.42 08/02/2004 1:30 PM MUCK HAULER documented in this encounter Plan of Treatment Upcoming Encounters Date Type Department Care Team (Late st Contact Info) Description 03/16/2025 9:30 AM CDT Office Visit [facility] Primary Care [facility] [address] [place] [address] Misty Sandra PA [address] [place] [address] documented as of this encounter Visit Diagnoses Not on filedocumented in this encounter Additional Health Concerns Infection Onset Date Last Indicated Resolved Time R/O C. diff 05/27/2024 05/25/2024 05/27/2024 3:36 PM MUCK HAULER documented as of this encounter Care Teams Dot Compliance Manager Relationship Specialty Start Date End Date Florentino Garza MD PCP - General 11/04/07 documented as of this encounter
--- OUTSIDE RECORDS SUMMARY | 2025-01-09 00:39 | XMS_ITS | Encounter Summary ---
Author Organization [facility] Address [address] [place] [address] Care Team Providers Care Electron Gun Inspector Name Role Phone Florentino Garza MD Primary Care Provider [phone] Encounter Details Date Type Department Care Team (Late st Contact Info) Description 09/06/2004 Outpatient Historical [facility] Internal Medicine [address] [address] Robbie Rogers MD [address] [place] [id number] Social History Tobacco Use Types Packs/Day Years Used Date Smoking Tobacco: Never Assessed Comments Unknown Sex and Gender Information Value Date Recorded Sex Assigned at Not on file Legal Sex Female 3:59 AM DIGITAL IMAGING SPECIALIST Gender Identity Not on file Sexual Orientation Not on file documented as of this encounter Last Filed Vital Signs Vital Sign Reading Time Taken Comments Blood Pressure 122/82 09/06/2004 1:15 PM DIGITAL IMAGING SPECIALIST Pulse - - Temperature - - Respiratory Rate - - Oxygen Saturation - - Inhaled Oxygen Concentration - - Weight 102.5 kg (226 lb) 09/06/2004 1:15 PM DIGITAL IMAGING SPECIALIST Height - - Body Mass Index 41.34 08/02/2004 1:30 PM DIGITAL IMAGING SPECIALIST documented in this encounter Plan of Treatment Upcoming Encounters Date Type Department Care Team (Late st Contact Info) Description 03/16/2025 9:30 AM CDT Office Visit [facility] Primary Care [facility] [address] [place] [address] Msity Sandra PA [address] [facility] [address] [place] [id number] documented as of this encounter Visit Diagnoses Not on filedocumented in this encounter Additional Health Concerns Infection Onset Date Last Indicated Resolved Time R/O C. diff 05/27/2024 05/25/2024 05/27/2024 3:36 PM DIGITAL IMAGING SPECIALIST documented as of this encounter Care Teams Electron Gun Inspector Relationship Specialty Start Date End Date Florentino Garza MD PCP - General 11/04/07 documented as of this encounter
[2025-01-09] MEDS: ACETAMINOPHEN 500 MG TABLET 1000 MG PO (06:30)
[2025-01-09] MEDS: LACTATED RINGERS 1,000 ML 30 ML IV CONT (06:30)
--- NOTE | 2025-01-09 06:57 | P.PNAN_ITS ---
Anes - Initial Pre Proc Eval Procedure: Operation Date: 01/09/25 07:30 Proposed Procedures p Hysteroscopy Dilation and Curettage - Dianna Gutierrez MD Date/Time: 01/09/25 06:57 Surgeon: Dianna Gutierrez MD Pre Op Diagnosis: menorrhagia, fibroids Patient Data Age: 49 Gender: F Height: 1.68 m Weight: 104.5 kg Allergies Allergy/AdvReac Type Severity Reaction Status Date / Time No Known Allergies Allergy Verified 01/03/25 11:08 Home Medications ?Medication ?Instructions ?Recorded ?Confirmed ?Type camphor-menthol 1 applic topical DAILY PRN muscle 12/11/20 01/03/25 History pain fluticasone propionate 50 1 spray intranasal DAILY 01/03/25 01/03/25 History mcg/actuation nasal spray,suspension (24 Hour Allergy Relief) loratadine 10 mg tablet (Allergy 10 mg PO DAILY 01/03/25 01/03/25 History Relief (loratadine)) naproxen sodium 220 mg tablet 440 mg PO BID PRN pain 01/03/25 01/03/25 History (Aleve) nebivolol 5 mg tablet 5 mg PO DAILY 01/03/25 01/03/25 History semaglutide (weight loss) 40 units subcut WEEKLY 01/03/25 01/03/25 History simethicone 80 mg chewable tablet 80 mg PO QID PRN abdominal 01/03/25 01/03/25 History (Gas Relief (simethicone)) distention Patient hx anesthesia problems: none Family hx anesthesia problems: none Results Review: All pre-operative results and documents have been reviewed as part of the pre- operative evaluation. [facility] Past Medical History Medical History (Updated 01/09/25 @ 06:58 by Kevin Quintanilla MD) HTN (hypertension) Obesity Surgical History Surgical History History of carpal tunnel surgery Social History Social History Smoking status: Never smoker Alcohol intake: current Substance use: never Substance use type: does not use Living arrangements: with family Spiritual care concerns: No Anes - Eval Final PreProcedure Day of Procedure 01/09/25 06:57 Patient weight: obese Heart: regular rate and rhythm Lungs: clear to auscultation Airway: Mallampati scale class II Neurological: alert and oriented Last oral intake: >/= 8 hours ASA classification: III Emergent: no Anesthetic plan: proceed Anesthesia type and monitoring: general GIVS and standard monitoring Results Review: All pre-operative results and documents have been reviewed as part of the pre-operative evaluation. Informed Consent: The patient's anesthetic plan and its attendant risks and benefits were discussed with the patient/family/POA. Questions were solicited and answers provided to the satisfaction of the patient/family/POA.
[2025-01-09 07:00] VITALS: BP 137/82; PULSE 92; RESP 14; TEMP 36.8; O2SAT 100
--- NOTE | 2025-01-09 07:02 | P.PNAN_ITS ---
Anes - Initial Pre Proc Eval Procedure: Operation Date: 01/09/25 07:30 Proposed Procedures p Hysteroscopy Dilation and Curettage - Dianna Gutierrez MD Date/Time: 01/09/25 07:02 Surgeon: Dianna Gutierrez MD Pre Op Diagnosis: menorrhagia, fibroids Patient Data Age: 49 Gender: F Height: 1.68 m Weight: 104.5 kg Allergies Allergy/AdvReac Type Severity Reaction Status Date / Time No Known Allergies Allergy Verified 01/03/25 11:08 Home Medications ?Medication ?Instructions ?Recorded ?Confirmed ?Type camphor-menthol 1 applic topical DAILY PRN muscle 12/11/20 01/03/25 History pain fluticasone propionate 50 1 spray intranasal DAILY 01/03/25 01/03/25 History mcg/actuation nasal spray,suspension (24 Hour Allergy Relief) loratadine 10 mg tablet (Allergy 10 mg PO DAILY 01/03/25 01/03/25 History Relief (loratadine)) naproxen sodium 220 mg tablet 440 mg PO BID PRN pain 01/03/25 01/03/25 History (Aleve) nebivolol 5 mg tablet 5 mg PO DAILY 01/03/25 01/03/25 History semaglutide (weight loss) 40 units subcut WEEKLY 01/03/25 01/03/25 History simethicone 80 mg chewable tablet 80 mg PO QID PRN abdominal 01/03/25 01/03/25 History (Gas Relief (simethicone)) distention Patient hx anesthesia problems: none Family hx anesthesia problems: none Results Review: All pre-operative results and documents have been reviewed as part of the pre- operative evaluation. [facility] Past Medical History Medical History HTN (hypertension) Obesity Surgical History Surgical History (Updated 01/09/25 @ 07:03 by Kevin Quintanilla MD) History of section History of carpal tunnel surgery Social History Social History Smoking status: Never smoker Alcohol intake: current Substance use: never Substance use type: does not use Living arrangements: with family Spiritual care concerns: No Anes - Eval Final PreProcedure Day of Procedure 01/09/25 07:02 Patient weight: obese Heart: regular rate and rhythm Lungs: clear to auscultation Airway: Mallampati scale class II Neurological: alert and oriented Last oral intake: >/= 8 hours ASA classification: III Emergent: no Anesthetic plan: proceed Anesthesia type and monitoring: general GIVS and standard monitoring Results Review: All pre-operative results and documents have been reviewed as part of the pre- operative evaluation. Informed Consent: The patient's anesthetic plan and its attendant risks and benefits were discussed with the patient/family/POA. Questions were solicited and answers provided to the satisfaction of the patient/family/POA.
--- NOTE | 2025-01-09 07:19 | WPDHPUPDATE1 ---
History and Physical Update Update Date/Time: 01/09/25 07:19 History and Physical has been reviewed, including an updated exam of the patient. There are NO changes in the patient's condition. Risks, benefits, and alternatives have been discussed and questions answered. Patient agrees to proceed with procedure.
--- NOTE | 2025-01-09 07:19 | PM.HPGS ---
History of Present Illness History of Present Illness Consent: Risks, benefits, and alternatives have been discussed and questions answered. Patient agrees to proceed with procedure. Chief complaint: menorrhagia, fibroids Narrative: Yesy Valera is a 49 year old female with a change in her cycles. Patient began having heavy cycles changing her pad every 1 to 2 hours. Patient with a history fibroids and history polyps removed in 2019. It was recommended to undergo D&C hysteroscopy for further evaluation. Risks of infection, bleeding, perforation, and fluid imbalance are reviewed. Patient voices understanding and agrees to proceed. Review of Systems Review of Systems: not repeated day of surgery; patient states no changes in status PMFSH Past Medical History Medical History (Updated 01/09/25 @ 07:23 by Dianna Gutierrez MD) Anxiety PCOS (polycystic ovarian syndrome) HTN (hypertension) Obesity Surgical History Surgical History (Updated 01/09/25 @ 07:22 by Dianan Gutierrez MD) History of hysteroscopy 2019 with removal of a large polyp per patient report History of elbow surgery Right History of section complicated by gestational diabetes History of carpal tunnel surgery Bilateral Social History Social History Smoking status: Never smoker Alcohol intake: current Substance use: never Substance use type: does not use Living arrangements: with family Spiritual care concerns: No Meds Home Medications and Allergies Home Medications ?Medication ?Instructions ?Recorded ?Confirmed ?Type camphor-menthol 1 applic topical DAILY PRN muscle 12/11/20 01/03/25 History pain fluticasone propionate 50 1 spray intranasal DAILY 01/03/25 01/03/25 History mcg/actuation nasal spray,suspension (24 Hour Allergy Relief) loratadine 10 mg tablet (Allergy 10 mg PO DAILY 01/03/25 01/03/25 History Relief (loratadine)) naproxen sodium 220 mg tablet 440 mg PO BID PRN pain 01/03/25 01/03/25 History (Aleve) nebivolol 5 mg tablet 5 mg PO DAILY 01/03/25 01/03/25 History semaglutide (weight loss) 40 units subcut WEEKLY 01/03/25 01/03/25 History simethicone 80 mg chewable tablet 80 mg PO QID PRN abdominal 01/03/25 01/03/25 History (Gas Relief (simethicone)) distention Allergies Allergy/AdvReac Type Severity Reaction Status Date / Time No Known Allergies Allergy Verified 01/03/25 11:08 Exam Const: General: healthy appearing and alert Orientation/consciousness: patient oriented x3 Resp: Effort & Inspection: normal respiratory effort : External Female Exam: normal external appearance Speculum Exam - Vagina: normal appearance of the vagina and normal vaginal discharge Speculum Exam - Cervix: normal appearance of the cervix Bimanual exam- vagina & uterus: uterine size normal and consistency normal Bimanual Exam- Adnexa, other: normal adnexae and No adnexal tenderness Neuro: General: patient oriented x3 Assessment and Plan Assessment and plan (1) Menorrhagia: Code(s): N92.0 - Excessive and frequent menstruation with regular cycle Status: Acute Assessment and Plan: Plan to proceed with D&C hysteroscopy
--- NOTE | 2025-01-09 07:40 | S_PTH ---
PATIENT: Yesy Valera LOC: [facility] U#:[id number] AGE/SX: 49/F ROOM: RE01/09/[address]: Dianna Gutierrez MD : 1975 BED: DIS: 01/09/2025 SPEC #: [id number] RECD: 01/09/25 10:22 STATUS: ESTHER REQ #: [id number] DANY: 01/09/25 07:[address]: Dianna Gutierrez DEPT: [facility] Surgical RECD BY: Brittney Cook ENTERED: 01/09/25 10:22 SP TYPE: Surgical OTHR DR: Florentino Garza, Tissues: A - Endometrial Curettings Procedures: Hematoxylin and Eosin Stain Gross and Microscopic Level 4
[2025-01-09] MEDS: KETOROLAC 30 MG/ML VIAL (*BKC) IV PUSH (07:45)
--- NOTE | 2025-01-09 07:49 | P.OP_ITS ---
Procedure Note - Detailed Date of Procedure 01/09/25 Pre-op Diagnosis menorrhagia, fibroids Post-op Diagnosis Same Procedure Performed D&C hysteroscopy Surgeon Dianna Gutierrez MD Anesthesia MAC Findings Uterus sounds to 8cm and appears generally thickened throughout. Possible polyps anterior. Description of Procedure The patient was taken to the operating room and placed under anesthesia in the dorsal lithotomy position. She was prepped and draped in usual sterile fashion. [place] speculum was placed in the vagina and the cervix grasped on the anterior lip with a tenaculum. The uterus is sounded to 8cm. The diagnostic hysteroscope was placed and with the above-stated findings the Aveta resection device was opened and placed. Under direct visualization the thickened endometrium and possible polyps are removed. Once the endometrium was flat, the hysteroscope was removed. The endometrium was sharply curetted until a good uterine cry was noted in all areas. All instruments are removed. Sponge, needle, and instrument counts are correct per the OR staff. The patient was awakened from anesthesia and taken to recovery in stable condition. Estimated Blood Loss 5 Drains No Packing No Pathology Yes (Endometrial shavings and curettings) Complications No immediate complications Condition Stable Disposition PACU
[2025-01-09 07:52] VITALS: BP 179/107; PULSE 80; RESP 18; O2SAT 97
[2025-01-09 08:20] VITALS: BP 148/79; PULSE 73; O2SAT 99
[2025-01-09 08:50] VITALS: BP 158/89; PULSE 69
[2025-01-09 08:59] LABS: BEDSIDEPREGUCG Negative (Negative)
[2025-01-09 09:20] VITALS: BP 144/90; PULSE 67
== END 2025-01-09 09:40 | disposition home or self-care (01) ==
PROVIDERS: PCP Internal Medicine; Visit Provider Obstetrics & Gynecology Gynecology
PROC: 0U5B8ZZ Destruction of Endometrium, Via Natural or Artificial Opening Endoscopic (ICD-10-PCS; CPT 58563; principal; 2025-01-09 07:30)
DX: R93.89 Abnormal findings on diagnostic imaging of other specified body structures (principal); I10 Essential (primary) hypertension; F41.9 Anxiety disorder, unspecified; E28.2 Polycystic ovarian syndrome; E66.9 Obesity, unspecified; Z68.37 Body mass index [BMI] 37.0-37.9, adult; Z79.1 Long term (current) use of non-steroidal anti-inflammatories (NSAID); Z79.85 Long-term (current) use of injectable non-insulin antidiabetic drugs; Z98.890 Other specified postprocedural states
CPT/HCPCS: 58558; 88305; A9270; J1885; J2003; J2250; J2704; J3010; J7120

== ENCOUNTER 2025-03-30 10:48 | Outpatient (CLI) | payer OTHER, SELFPAY ==
--- NOTE | ~2025-03-30 | MM_ITS ---
EXAMINATION: MM screening [facility] BI w jenniffer HISTORY: Screening TECHNIQUE: Craniocaudal and mediolateral oblique 3-D tomosynthesis images were obtained and synthetic 2-D images were generated. CAD analysis was submitted and interpreted. COMPARISON: 05/01/2020 and 03/26/2024 BREAST PARENCHYMAL COMPOSITION: There are scattered areas of fibroglandular density. FINDINGS: There is no evidence of suspicious mass, calcification, or architectural distortion to suggest malignancy. There has been no suspicious interval change. IMPRESSION: 1. No mammographic evidence of malignancy. Recommend routine screening mammography in one year. BI-RADS Category 2: Benign finding(s) Reviewed, dictated and finalized at location Q. IMPRESSION: 1. No mammographic evidence of malignancy. Recommend routine screening mammogra phy in one year. BI-RADS Category 2: Benign finding(s)
== END 2025-03-30 10:49 | disposition home or self-care (01) ==
LOC: MICIMG 10:48
PROVIDERS: PCP Internal Medicine; Visit Provider Obstetrics & Gynecology Gynecology
DX: Z12.31 Encounter for screening mammogram for malignant neoplasm of breast (principal)
CPT/HCPCS: 77063; 77067